=== PATIENT | female | born 1970 | race Caucasian/White ===

== ENCOUNTER 2018-03-29 12:30 | Inpatient (IN) | END 2018-04-05 15:50 | disposition home or self-care (01) | DRG 694 ==

== ENCOUNTER 2018-04-30 19:13 | Inpatient (IN) | END 2018-05-04 14:08 | disposition home or self-care (01) | DRG 872 ==

== ENCOUNTER 2018-09-03 10:44 | Inpatient (IN) | END 2018-09-05 14:54 | disposition home or self-care (01) | DRG 743 ==

== ENCOUNTER 2018-10-14 23:17 | Inpatient (IN) | payer OTHER ==
[~2018-10-14] VITALS: Ht 167.6 cm; Wt 84.1 kg
[~2018-10-14 23:17] MED LIST: HYDR-843 PO; METF500T24 PO; PANT40TA4 PO
[2018-10-15] MEDS ORDERED: ONDANSETRON 4 MG INJ IV STA (00:12)
[2018-10-15] MEDS ORDERED: morphine 4 MG/ML VIAL IV STA (00:12)
[2018-10-15] MEDS ORDERED: SOD CHLORIDE 0.9% 1,000 ML IV ONE (00:30)
[2018-10-15] MEDS ORDERED: HYDROCODONE/APAP (5/325) TAB PO ONE ×2 (00:30→01:00)
[2018-10-15] MEDS ORDERED: SODIUM CHLORIDE 0.9% 1L BAG IV* STA (01:06)
[2018-10-15] MEDS ORDERED: CEFTRIAXONE 1 GM/50 ML (PMX) 50 ML IVPB STA (01:06)
--- NOTE | 2018-10-15 01:34 | ERD ---
ER Documentation Chief Complaint Chief Complaint DYSURIA, LOWER BACK PAIN X'S 2 DAYS HPI 48-year-old female presents for evaluation of left flank pain, fever, nausea. Patient has a history of a staghorn calculus, and has had recurrent urinary tract infections, she also has been noted to have a pancreatic cystic mass as well, she was admitted in August 2018, for similar episode. She denies any vomiting today, she denies hematuria. She denies recent sick contacts or any other hospitalizations. ROS All systems reviewed and are negative except as per history of present illness. Medications Home Meds Active Scripts Pantoprazole* (Pantoprazole*) 40 Mg Tablet.dr, 40 MG PO DAILY@06 for 30 Days Prov:ASHANTI CORONEL MD 04/04/18 Reported Medications Hydroxyzine Hcl* (Hydroxyzine Hcl*) 25 Mg Tablet, 25 MG PO QHS PRN for ITCHING, #30 TAB 03/29/18 Metformin Hcl* (Metformin Hcl*) 500 Mg Tablet, 500 MG PO WITH BREAKFAST DINNE, #30 TAB 03/29/18 Allergies Allergies: Coded Allergies: No Known Allergies (Verified Allergy, Unknown, 04/30/18) PMhx/Soc History of Surgery: Yes (x2 c section ) Anesthesia Reaction: No Hx Neurological Disorder: No Hx Respiratory Disorders: No Hx Cardiac Disorders: No Hx Psychiatric Problems: No Hx Miscellaneous Medical Probl: Yes (UTI, Kidney infection) Hx Alcohol Use: No Hx Substance Use: No Hx Tobacco Use: No Smoking Status: Never smoker Physical Exam Vitals Vital Signs Date Temp Pulse Resp B/P (MAP) Pulse Ox O2 O2 Flow FiO2 Time Delivery Rate 10/15/18 97.6 64 15 96/72 (80) 98 Room Air 05:03 10/15/18 98.8 65 22 105/53 97 Room Air 02:00 (70) 10/14/18 100.8 111 20 116/74 98 23:20 (88) Physical Exam Const: No acute distress Head: Atraumatic Eyes: Normal Conjunctiva ENT: Normal External Ears, Nose and Mouth. Neck: Full range of motion. No meningismus. Resp: Clear to auscultation bilaterally Cardio: Tachycardia regular rhythm, no murmurs Abd: Soft, non tender, non distended. Normal bowel sounds Skin: No petechiae or rashes Back: No midline or flank tenderness Ext: No cyanosis, or edema Neur: Awake and alert Psych: Normal Mood and Affect Result Diagram: 10/15/18 0025 10/15/18 0025 Results 24 hrs Laboratory Tests Test 10/15/18 00:10 10/15/18 00:25 10/15/18 01:30 10/15/18 01:41 Urine Color SHANICE Urine Clarity TURBID Urine pH 5.0 Urine Specific 1.023 [place] Urine Ketones TRACE mg/dL Urine Nitrite POSITIVE mg/dL Urine Bilirubin NEGATIVE mg/dL Urine 1+ mg/dL Urobilinogen Urine Leukocyte 3+ Dulce/ul Esterase Urine Microscopic > 182 /HPF RBC Urine Microscopic > 182 /HPF WBC Urine Squamous FEW /HPF Epithelial Cells Urine Bacteria MANY /HPF Urine Mucus FEW /HPF Urine Hemoglobin 3+ mg/dL Urine Glucose 1+ mg/dL Urine Total 2+ mg/dl Protein White Blood Count 9.3 10^3/ul Red Blood Count 4.36 10^6/ul Hemoglobin 11.0 g/dl Hematocrit 34.6 % Mean Corpuscular 79.4 fl Volume Mean Corpuscular 25.2 pg Hemoglobin Mean Corpuscular 31.8 g/dl Hemoglobin Concen t Red Cell 16.6 % Distribution Width Platelet Count 155 10^3/UL Mean Platelet 12.0 fl Volume Immature 0.400 % Granulocytes % Neutrophils % 83.5 % Lymphocytes % 6.2 % Monocytes % 9.7 % Eosinophils % 0.0 % Basophils % 0.2 % Nucleated Red 0.0 /100WBC Blood Cells % Immature 0.040 10^3/ul Granulocytes # Neutrophils # 7.8 10^3/ul Lymphocytes # 0.6 10^3/ul Monocytes # 0.9 10^3/ul Eosinophils # 0.0 10^3/ul Basophils # 0.0 10^3/ul Nucleated Red 0.0 10^3/ul Blood Cells # Prothrombin Time 14.3 Sec Prothrombin Time 1.1 Ratio INR International 1.10 Normalized Ratio Activated 30.4 Sec Partial Thrombopl ast Time Sodium Level 139 mmol/L Potassium Level 4.3 mmol/L Chloride Level 103 mmol/L Carbon Dioxide 26 mmol/L Level Anion Gap 10 Blood Urea 18 mg/dl Nitrogen Creatinine 0.96 mg/dl Est Glomerular > 60 mL/min Filtrat Rate mL/min Glucose Level 307 mg/dl Calcium Level 10.5 mg/dl Total Bilirubin 0.4 mg/dl Direct Bilirubin 0.00 mg/dl Indirect 0.4 mg/dl Bilirubin Aspartate Amino 36 IU/L Transf (AST/SGOT) Alanine 39 IU/L Aminotransferase (ALT/SGPT) Alkaline 113 IU/L Phosphatase Total Protein 7.0 g/dl Albumin 4.1 g/dl Globulin 2.90 g/dl Albumin/Globulin 1.41 Ratio Lipase 66 U/L Troponin I < 0.012 ng/ml POC Venous 1.3 mmol/L Lactate Test 10/15/18 03:46 POC Venous 0.8 mmol/L Lactate Current Medications Medications Dose Sig/Earnest Start Time Status Last (Trade) Ordered Route PRN Stop Time Admin Dose Reason Admin 1 tab ONCE ONCE 10/15/18 DC Acetaminophen PO 00:30 10/15/18 / 00:30 Hydrocodone Bitart ([place] (5/325)) Sodium 1,000 ml @ Q1H ONCE 10/15/18 DC 10/15/18 Chloride 1,000 mls/hr IV 00:30 10/15/18 00:53 01:29 Morphine 4 mg ONCE STAT 10/15/18 DC Sulfate IV 00:12 10/15/18 (morphine) 00:38 Ondansetron 4 mg ONCE STAT 10/15/18 DC 10/15/18 HCl (Zofran IV 00:12 10/15/18 00:52 Inj) 00:13 1 tab ONCE ONCE 10/15/18 DC 10/15/18 Acetaminophen PO 01:00 10/15/18 00:52 / 01:01 Hydrocodone Bitart ([place] (5/325)) Sodium 1,410 ml BOLUS OVER 2 10/15/18 DC 10/15/18 Chloride HOURS STAT 01:06 10/15/18 01:45 (NS) IV* 01:09 Ceftriaxone 50 ml @ ONCE STAT 10/15/18 DC 10/15/18 Sodium 100 mls/hr IVPB 01:06 10/15/18 01:44 01:35 Procedures/MDM Is a 48-year-old female presents for evaluation of left flank pain, she presents with fever and tachycardia. Patient was initially seen in ED 2, I noted that her UA had returned positive and reviewed her prior vital signs, which showed fever and tachycardia, that she met sepsis criteria. She was given 1 L of IV fluids, additional bolus was ordered to complete a 30 cc/kg bolus. She will be treated with IV antibiotics with ceftriaxone, and will be admitted to medicine. EKG: Rate/Rhythm: Normal Sinus Rhythm QRS, ST, T-waves: No changes consistent w/ acute ischemia Impression: No evidence of ischemia or arrhythmia Chest X-ray 1V Interpreted by me: Soft Tissue: No acute abnormalities Bones: No acute abnormalities Mediastinum/Cardiac Silhouette/Lungs: No acute abnormalities Sepsis Documentation: Patient's infectious symptoms have not stabilized and the patient is at risk of rapid decompensation. The patient will be admitted for careful hydration, antibiotic therapy, and infectious source control. SEVERE SEPSIS CRITERIA: Infectious source: UTI/pyelonephritis No evidence of endorgan damage SEPSIS MANAGEMENT Time of recognition of sepsis: Upon review of urinalysis. Time of recognition of severe sepsis: [No severe sepsis at this time]. Time of recognition of septic shock: [No septic shock at this time]. 3 HOUR BUNDLE Blood cultures x 2 before broad-spectrum antibiotics: [Yes] 30 ml/kg NS bolus [Completed] Initial lactate [] Repeat lactate [] SEPTIC SHOCK ASSESSMENT: [No] lactic acid > 4.0 [No] Persistent hypotension (SBP < 90 or 40 mmHg drop, MAP < 65) despite 30 mL/kg IV fluid bolus VOLUME REASSESSMENT FOR SEPTIC SHOCK: Reevaluation Time: [] Temp [], BP [], HR [], RR[], Pox [] Heart [Regular rate & rhythm] Lungs [No crackles] Skin [Warm & dry] Cap Refill [Less than 2 seconds] Peripheral pulses [Radially present] PERSISTENT HYPOTENSION TREATMENT: Comfort care [No] Central line [Not Required] Vasopressor started [Not required] I considered further perfusion assessment with CVP measurement, SCVO2, bedside ultrasound volume assessment, passive leg raise, trial of further fluid bolus. And proceeded with [30 ml/kg fluid bolus of NSS, broad spectrum antibiotics, and admission.] CRITICAL CARE Critical care time [35] minutes Emergent fluid management while maintaining close respiratory support. Provision of immediate and broad-spectrum antibiotic therapy. Simultaneous assessment for possible sources in order to direct targeted therapy. Consideration for invasive and chemical support to prevent cardiopulmonary col lapse. Critical care time is independent of procedures performed. Departure Diagnosis: Primary Impression: Flank pain Additional Impressions: Pyelonephritis Sepsis Sepsis type: sepsis due to unspecified organism Qualified Codes: A41.9 - Sepsis, unspecified organism Condition: Stable SEBASTIAN DUFFY MD Oct 15, 2018 01:34
[2018-10-15 06:10] VITALS: Ht 167.6 cm; Wt 84.1 kg
[2018-10-15 06:18] VITALS: BP 103/64; PULSE 67; RESP 16
--- NOTE | 2018-10-15 06:59 | NUR ---
END OF SHIFT SUMMARY: PATIENT ARRIVED TO UNIT AT 0555 IN STABLE CONDITION. V/S STABLE, AFEBRILE. ADMISSION, PICTURES (SKIN INTACT) AND ORIENTATION COMPLETE. WILL ENTER DR. CORONEL'S ORDERS AND ENDORSE TO AM RN. INSTRUCTED PATIENT TO CALL FOR ASSISTANCE. CALL LIGHT AND PHONE IN PLACE. WILL ENDORSE PLAN OF CARE TO AM RN.
[2018-10-15] MEDS ORDERED: ONDANSETRON 4 MG INJ IV PRN (07:00)
[2018-10-15] MEDS: PIPER-TAZO 3.375 GM IV (PMX) 100 ML IVPB SCH ×3 (07:00→21:29)
[2018-10-15 07:04] VITALS: BP 117/63; PULSE 61; RESP 15
[2018-10-15] MEDS ORDERED: DEXTROSE 50% 50 ML SYRINGE IV PRN ×2 (08:00)
[2018-10-15] MEDS ORDERED: GLUCAGON 1 MG INJ IM PRN (08:00)
[2018-10-15] MEDS ORDERED: GLUCOSE GEL 15 GRAM TUBE BUCCAL PRN (08:00)
[2018-10-15] MEDS ORDERED: GLUCOSE GEL 15 GRAM TUBE PO PRN ×2 (08:00)
[2018-10-15] MEDS: SOD CHLORIDE 0.45% 1,000 ML IV SCH ×2 (08:29→21:32)
[2018-10-15] MEDS: PANTOPRAZOLE 40 MG INJ IV SCH (08:30)
[2018-10-15] MEDS: INSULIN ASPART [NOVOLOG] 3 ML PEN SC SCH ×4 (09:47→21:00)
--- NOTE | 2018-10-15 10:38 | CONS ---
Date/Time of Note Date/Time of Note DATE: 10/15/18 TIME: 10:23 Assessment/Plan Assessment/Plan Assessment/Plan 48-year-old female with known history of horseshoe kidney and large left renal staghorn calculus has recurrent urinary tract infections. She was admitted with symptoms of urinary tract infection again. Considering the fact that she has a horseshoe kidney and being 5.8 cm staghorn calculus I recommend to send her to a urologist in a tertiary hospital where a urologist specializes in complicated stones. For now treat her urinary tract infection. Result Diagram: 10/15/18 0025 10/15/18 0025 Results 24hrs Laboratory Tests Test 10/15/18 00:10 10/15/18 00:25 10/15/18 01:30 10/15/18 01:41 Urine Color SHANICE Urine Clarity TURBID A Urine pH 5.0 Urine Specific [place] 1.023 Urine Ketones TRACE A Urine Nitrite POSITIVE A Urine Bilirubin NEGATIVE Urine Urobilinogen 1+ H Urine Leukocyte Esterase 3+ H Urine Microscopic RBC > 182 H Urine Microscopic WBC > 182 H Urine Squamous FEW Epithelial Cells Urine Bacteria MANY A Urine Mucus FEW A Urine Hemoglobin 3+ H Urine Glucose 1+ H Urine Total Protein 2+ H White Blood Count 9.3 # Red Blood Count 4.36 Hemoglobin 11.0 L Hematocrit 34.6 L Mean Corpuscular Volume 79.4 L Mean Corpuscular 25.2 L Hemoglobin Mean Corpuscular 31.8 L Hemoglobin Concent Red Cell Distribution 16.6 H Width Platelet Count 155 # Mean Platelet Volume 12.0 H Immature Granulocytes % 0.400 Neutrophils % 83.5 H Lymphocytes % 6.2 L Monocytes % 9.7 Eosinophils % 0.0 Basophils % 0.2 Nucleated Red Blood 0.0 Cells % Immature Granulocytes # 0.040 H Neutrophils # 7.8 H Lymphocytes # 0.6 L Monocytes # 0.9 Eosinophils # 0.0 Basophils # 0.0 Nucleated Red Blood 0.0 Cells # Prothrombin Time 14.3 Prothrombin Time Ratio 1.1 INR International 1.10 Normalized Ratio Activated 30.4 Partial Thromboplast Time Sodium Level 139 Potassium Level 4.3 Chloride Level 103 Carbon Dioxide Level 26 Anion Gap 10 Blood Urea Nitrogen 18 Creatinine 0.96 Est Glomerular Filtrat > 60 Rate mL/min Glucose Level 307 H Calcium Level 10.5 H Total Bilirubin 0.4 Direct Bilirubin 0.00 Indirect Bilirubin 0.4 Aspartate Amino 36 Transf (AST/SGOT) Alanine 39 Aminotransferase (ALT/SG PT) Alkaline Phosphatase 113 Total Protein 7.0 Albumin 4.1 Globulin 2.90 Albumin/Globulin Ratio 1.41 Lipase 66 Troponin I < 0.012 POC Venous Lactate 1.3 Test 10/15/18 03:46 10/15/18 05:32 10/15/18 08:32 POC Venous Lactate 0.8 Lactic Acid Level 0.7 Bedside Glucose 167 Consultation Date/Type/Reason Admit Date/Time Oct 15, 2018 at 04:40 Date of Consultation: Oct 15, 2018 Type of Consult Urology Reason for Consultation Left renal staghorn calculus and recurrent urinary tract infection Requesting Provider: ASHANTI CORONEL of Present Illness 48-year-old female presented to the emergency room with complaint of nausea, bilateral flank pain more on the left than the right, dysuria and bad smell of the urine. She also had a fever of 100.2 in the emergency room. She is known to have a history of recurrent urinary tract infections and very large left renal staghorn calculus and a horseshoe kidney. Constitutional: febrile Eyes: no complaints ENT: no complaints Respiratory: no complaints Cardiovascular: No chest pain Gastrointestinal: nausea Genitourinary: dysuria, flank pain (Both sides), other (Bad smell of the urine, urinary frequency and urgency) Musculoskeletal: no complaints Skin: no complaints Neurologic: no complaints Endocrine: no complaints Lymphatic: no complaints Psychological: no complaints Past Medical History Medical History: diabetes, urinary tract infection, other (Pancreatic mass stable on CT scan) Medications Current Medications Sodium Chloride 1,000 ml @ 75 mls/hr [id number] IV Last administered on 10/15/18at 08:29; Admin Dose 75 MLS/HR; Start 10/15/18 at 07:00 Pantoprazole (Protonix Iv) 40 mg DAILY@06 IV Last administered on 10/15/18at 08:30; Admin Dose 40 MG; Start 10/15/18 at 07:30 Acetaminophen (Tylenol Tab) 650 mg Q6H PRN PO MILD PAIN(1-3)OR ELEVATED TEMP; Start 10/15/18 at 07:00 Ondansetron HCl (Zofran Inj) 4 mg Q6H PRN IV NAUSEA AND/OR VOMITING; Start 10/15/18 at 07:00 Hydromorphone HCl (Dilaudid) 0.5 mg Q4H PRN IV SEVERE PAIN LEVEL 7-10; Start 10/15/18 at 07:00 Piperacillin Sod/ Tazobactam Sod 100 ml @ 200 mls/hr Q8 IVPB ; Start 10/15/18 at 07:00 Diagnostic Test (Pha) (Accu-Chek) 1 ea 02 XX ; Start 10/16/18 at 02:00 Insulin Aspart (Novolog Insulin Pen) NOVOLOG *MILD* ALGORITHM WITH MEALS BEDTIME SC Last administered on 10/15/18at 09:47; Admin Dose 1 UNIT; Start 10/15/18 at 07:50 Miscellaneous Information 1 ea NOTE XX ; Start 10/15/18 at 08:00 Glucose (Glutose) 15 gm Q15M PRN PO DECREASED GLUCOSE; Start 10/15/18 at 08:00 Glucose (Glutose) 22.5 gm Q15M PRN PO DECREASED GLUCOSE; Start 10/15/18 at 08:00 Dextrose (D50w Syringe) 25 ml Q15M PRN IV DECREASED GLUCOSE; Start 10/15/18 at 08:00 Dextrose (D50w Syringe) 50 ml Q15M PRN IV DECREASED GLUCOSE; Start 10/15/18 at 08:00 Glucagon (Glucagen) 1 mg Q15M PRN IM DECREASED GLUCOSE; Start 10/15/18 at 08:00 Glucose (Glutose) 15 gm Q15M PRN BUCCAL DECREASED GLUCOSE; Start 10/15/18 at 08:00 Allergies: Coded Allergies: No Known Allergies (Verified Allergy, Unknown, 04/30/18) Past Surgical History Past Surgical Hx: other (Laparoscopic total abdominal hysterectomy 2 months ago, 2 C-sections) Social History Alcohol Use: rarely Smoking Status: Never smoker Other Social History 7 para 5 2 and 3 normal deliveries. Exam/Review of Systems Vital Signs Vitals Vital Signs Date Temp Pulse Resp B/P (MAP) Pulse Ox O2 O2 Flow FiO2 Time Delivery Rate 10/15/18 98.6 61 15 117/63 100 Room Air 07:04 (81) Intake and Output 10/14/18 10/14/18 10/15/18 1515:00 23:00 07:00 IntakeIntake Total 1460 ml BalanceBalance 1460 ml Exam Constitutional: alert Psych: no complaints Head: normocephalic Eyes: nl conjunctiva ENMT: nl external ears & nose Neck: supple, non-tender Respiratory: normal air movement; No wheezing Cardiovascular: No jugular venous distention (JVD) Gastrointestinal: soft Genitourinary - Female: CVA tenderness (Bilateral), other (Status post laparoscopic total hysterectomy. Benign pathology, no malignancy) Musculoskeletal: nl extremities to inspection Extremities: No calf tenderness Neurological: nl mental status Medications Medications Current Medications Sodium Chloride 1,000 ml @ 75 mls/hr [id number] IV Last administered on 10/15/18at 08:29; Admin Dose 75 MLS/HR; Start 10/15/18 at 07:00 Pantoprazole (Protonix Iv) 40 mg DAILY@06 IV Last administered on 10/15/18at 08:30; Admin Dose 40 MG; Start 10/15/18 at 07:30 Acetaminophen (Tylenol Tab) 650 mg Q6H PRN PO MILD PAIN(1-3)OR ELEVATED TEMP; Start 10/15/18 at 07:00 Ondansetron HCl (Zofran Inj) 4 mg Q6H PRN IV NAUSEA AND/OR VOMITING; Start 10/15/18 at 07:00 Hydromorphone HCl (Dilaudid) 0.5 mg Q4H PRN IV SEVERE PAIN LEVEL 7-10; Start 10/15/18 at 07:00 Piperacillin Sod/ Tazobactam Sod 100 ml @ 200 mls/hr Q8 IVPB ; Start 10/15/18 at 07:00 Diagnostic Test (Pha) (Accu-Chek) 1 ea 02 XX ; Start 10/16/18 at 02:00 Insulin Aspart (Novolog Insulin Pen) NOVOLOG *MILD* ALGORITHM WITH MEALS BEDTIME SC Last administered on 10/15/18at 09:47; Admin Dose 1 UNIT; Start 10/15/18 at 07:50 Miscellaneous Information 1 ea NOTE XX ; Start 10/15/18 at 08:00 Glucose (Glutose) 15 gm Q15M PRN PO DECREASED GLUCOSE; Start 10/15/18 at 08:00 Glucose (Glutose) 22.5 gm Q15M PRN PO DECREASED GLUCOSE; Start 10/15/18 at 08:00 Dextrose (D50w Syringe) 25 ml Q15M PRN IV DECREASED GLUCOSE; Start 10/15/18 at 08:00 Dextrose (D50w Syringe) 50 ml Q15M PRN IV DECREASED GLUCOSE; Start 10/15/18 at 08:00 Glucagon (Glucagen) 1 mg Q15M PRN IM DECREASED GLUCOSE; Start 10/15/18 at 08:00 Glucose (Glutose) 15 gm Q15M PRN BUCCAL DECREASED GLUCOSE; Start 10/15/18 at 0 8:[address] scan of the abdomen and pelvis: 1. Persistent left renal staghorn calculus with findings compatible with chronic infection stable since the prior study. 2. Interval pelvic surgery with apparent hysterectomy and bilateral oophorec carina. 3. No evidence of abdominal or pelvic abscess. 4. Horseshoe kidneys. 5. Stable chronic cystic pancreatic mass. HEMANT TAVERA MD Oct 15, 2018 10:34
--- NOTE | 2018-10-15 14:00 | NUR ---
PATIENT COMFORTABLE. ALERT ORIENTED. VITALS STABLE. ON CLEAR LIQUID STATUS. AND CONTINUED WITH ACCUCHECK. SEEN BY ARIADNE GILMORE NO ORDERS RECEIVED. SEEN BY SAGE GILMORE AND NO ORDERS RECEIVED. DIET TOLERATED. PATIENT ASSISTED TO TOILET FOR VOIDING FEW TIMES. IV SITE INTACT AND PATENT WITH IVFLUID ON FLOW. ALL SAFETY PRECAUTIONS CONTINUED SUCH BED IN THE LOWEST POSITION, ALARMS ON, BRAKES ON, CALL LIGHT WITHIN REACH. WILL CONTINUE TO MONITOR.
[2018-10-15 14:24] VITALS: BP 142/70; PULSE 94; RESP 15
[2018-10-15] MEDS: HYDROmorphONE 0.5 MG/0.5 ML SYG IV PRN (14:39)
[2018-10-15] MEDS: ACETAMINOPHEN 325 MG TAB PO PRN ×2 (14:53→22:35)
--- NOTE | 2018-10-15 15:49 | QN ---
Documentation Comment seen and examined CINDI CAZARES MD Oct 15, 2018 15:49
--- NOTE | 2018-10-15 16:14 | HP ---
DATE OF ADMISSION: 10/15/2018 REASON FOR ADMISSION: Back pain, fevers and chills. HISTORY OF PRESENT ILLNESS: This is a 48-year-old female with a past medical history of staghorn martina culus, diabetes, presented to the Emergency Department after complaining of left flank pain, fever an d nausea for the last 2 to 3 days. The patient has also been saying that she has been noticing that her urine being turned dark. Patient has also had recent recurrent urinary tract infections. The shari odonnell was being seen by Dr. Cedillo as an outpatient; however, according to the patient the patient has not had any surgery or any intervention done. On arrival to the ED, vital signs showed a temperatur e of 100.8. Labs showed white count of 9.9, hemoglobin of 11 9.3, hemoglobin 11.0. UA showed 182 RB Cs, 182 WBCs. Urine cultures were pending and the patient was started on NS and Zosyn for further tr eatment. The patient had also been seen by Dr. Henriquez and the patient had horseshoe shaped kidney a nd being a 5.8 cm staghorn calculus. He [facility] PAST MEDICAL HISTORY: 1. Diabetes. 2. History of herpes simplex infection. 3. Hypercholesterolemia. 4. Horseshoe shaped kidney with left staghorn calculus, pyelonephritis or pancreatic cystic lesion a nd pelvic lesion. 5. Fatty liver. ALLERGIES: None. MEDICATIONS: Taking at home: 1. Acyclovir. 2. Metformin. 3. Naproxen. PAST SURGICAL HISTORY: Patient also had a recent ovarian surgery, x2. SOCIAL HISTORY: Denies any history of smoking, alcohol or any drug use. FAMILY HISTORY: Noncontributory. REVIEW OF SYSTEMS: The patient complained of left flank pain. The patient also complained of some n ausea. Denied any diarrhea. Denied any headache, any blurry vision, having burning sensation while urinating. Denied any chest pain, any shortness of breath. Denied any focal neurological deficit. PHYSICAL EXAMINATION: VITAL SIGNS: Currently temperature 100.8. GENERAL: The patient is awake, alert, oriented, appears to be in mild distress secondary to pain. HEENT: Pupils equal, round, reactive to light. NECK: Supple, no JVD. HEART: Regular rhythm. LUNGS: Clear to auscultate bilaterally. ABDOMEN: Soft, nontender, nondistended, positive normoactive bowel sounds. The patient has well-hea led surgical scars. The patient has CVA tenderness on the right and on the left, more on the left. EXTREMITIES: No clubbing, cyanosis, or edema. DIAGNOSTIC DATA: Creatinine is 0.96. White count is 9.3, hemoglobin 11.0, platelet count is 155. UA shows 1 to 2 WBCs, 1 to 2 RBCs and hemoglobin are 2+ protein, positive for nitrite. IMAGING: CT of the abdomen and pelvis that showed persistent left staghorn calculus with chronic inf ection. Interval pelvic surgery apparent hysterectomy and bilateral oophorectomy, horseshoe shaped k idney, stable, chronic pancreatic cystic mass. ASSESSMENT AND PLAN: This is a 48-year-old female presenting with: 1. 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 Patient had a history of E. coli i n the past. 2. History of hysterectomy and bilateral oophorectomy. 3. Fever secondary to #1. 4. Horseshoe shaped kidneys. 5. Stable left pancreatic cystic mass. 6. Diabetes. 7. Hyperlipidemia. 8. History of herpes infection. PLAN: At this period of time, patient has been admitted to med/surg unit. We will continue the laura ent on IV fluids. The patient is already on Zosyn. Urine cultures have been sent. Urology, Dr. Bárbara willis, has been consulted; however, will call Dr. Cedillo, who had seen the patient before. Rest of the treatment will depend on the patient's hospitalization course. Dictated By: CINDI GROSSMAN/ROMERO Conf#: [id number] DID#: [id number] CC: ASHANTI CORONEL MD;*EndCC*
--- NOTE | 2018-10-15 18:00 | NUR ---
END OF SHIFT NOTE: PATIENT COMFORTABLE REST OF THE DAY. NO COMPLAINS OF ANY PAIN. IV FLUID CONTINUED. SCD ON ALL SAFETY PRECAUTIONS MAINTAINED. WILL CONTINUE TO MONITOR.
[2018-10-15 19:17] VITALS: BP 111/66; PULSE 71; RESP 16
[2018-10-16 01:30] VITALS: BP 122/65; PULSE 67; RESP 16
[2018-10-16] MEDS: ACCU-CHEK XX SCH (02:00)
[2018-10-16] MEDS: PANTOPRAZOLE 40 MG INJ IV SCH (05:39)
[2018-10-16] MEDS: HYDROmorphONE 0.5 MG/0.5 ML SYG IV PRN ×3 (05:41→20:10)
[2018-10-16] MEDS: PIPER-TAZO 3.375 GM IV (PMX) 100 ML IVPB SCH ×3 (05:43→23:05)
[2018-10-16 07:37] VITALS: BP 111/65; PULSE 63; RESP 18
[2018-10-16] MEDS: INSULIN ASPART [NOVOLOG] 3 ML PEN SC SCH ×4 (08:31→21:00)
--- NOTE | 2018-10-16 08:46 | CONS ---
DATE OF ADMISSION: 10/15/2018 DATE OF CONSULTATION: 10/16/2018 Thank you very much for requesting a urologic followup on the patient, a 48-year-old female with a kn own horseshoe kidney and nonobstructing staghorn calculi in her left portion of the horseshoe kidney, who presented 2 days ago with left flank pain, fever and nausea. The patient had a T-max in the [facility] room of 100.8 with a heart rate of 111. She was given IV antibiotics and fluids with immediat e resolution. At the current time, she is no longer having flank pain, nausea or vomiting. A follow up CT scan on 10/15/2018 without IV contrast of the abdomen and pelvis demonstrated a stable nonobstr ucting horseshoe kidney as well as a grossly stable cystic lesion in the pancreas not well visualized without IV contrast. The patient is status post hysterectomy 2 months ago for adnexal mass. When t he patient was last seen in July she was to undergo an evaluation of her adnexal mass as well as h er significant pancreatic mass. Her pancreatic mass has not been evaluated to date. Upon presentati on to the hospital, she was placed on IV antibiotics and is currently on piperacillin. Her blood cul tures x2 are negative. There is no urine culture. PAST MEDICAL HISTORY: Diabetes, as well as above. PAST SURGICAL HISTORY: As above. ALLERGIES: NO KNOWN DRUG ALLERGIES. CURRENT MEDICATIONS: 1. Insulin. 2. Piperacillin. PHYSICAL EXAMINATION: VITAL SIGNS: Blood pressure 111/65, heart rate 63, temperature 98.6. ABDOMEN: Soft, nondistended, nontender. No palpable masses. FLANK: No CVA tenderness, no masses. LABORATORY DATA: White blood count 5.9, hemoglobin 9.1, creatinine 0.65. PT 14.3, PTT 30. Chest x-ray negative. IMPRESSION: Impression is nonobstructing chronic large left-sided horseshoe kidney with prominent st aghorn calculi previously measuring 5.8 cm without any hydronephrosis, status post hysterectomy, diab etes and significant pancreatic mass. PLAN: Urine culture suggests evaluation of pancreatic mass with clearance of the above would suggest percutaneous nephrolithotripsy, must consider flank pain as well as fewer of other etiologies as no urine culture was obtained and the stone is nonobstructing. We will review images with [facility] to see if she is a candidate for percutaneous nephrolithotripsy here at [facility]. All questions have been answered. The patient does understand multiple treatments may be required to remove this significant stone burden as well as her increased risk. All questions ans wered. Dictated By: ROSETTE FRIAS MD EGR/NTS Conf#: [id number] DID#: [id number] CC: ROSETTE FRIAS MD; ASHANTI CORONEL MD;*EndCC*
[2018-10-16] MEDS: SOD CHLORIDE 0.45% 1,000 ML IV SCH ×2 (10:39→23:00)
--- NOTE | 2018-10-16 11:00 | NUR ---
RECEIVED PATIENT REPORT FROM APPLE Ambrose AT THIS TIME .PATIENT ALERT , ORIENTED, VITALS STABLE. IV FLUID ON FLOW. ALL SAFETY PRECAUTIONS MAINTAINED SUCH BED IN THE LOWEST POSITION, ALARMS ON, BRAKES ON, CALL LIGHT WITH IN REACH. ENCOURAGED TO USE CALL LIGHT.
--- NOTE | 2018-10-16 11:11 | NUR ---
ENDORSEMENT: REPORT GIVEN TO JING Gallardo RN FOR CONTINUITY OF CARE. PATIENT SLEEPING IN BED, APPEARS IN NO DISTRESS. PATIENT IV ON LEFT AC, RUNNING IV FLUIDS. DR. FRIAS SAW PATIENT IN AM, PER MD NOTE, WAITING FOR URINE SAMPLE AND IMAGING TO DECIDE PLAN OF CARE. PATIENT DENIED NEED FOR PAIN MEDICATIONS DURING SHIFT. HOURLY ROUNDING, FALL PRECUATIONS OBSERVED, ENDORSED TO JING Ramirez
[2018-10-16 14:00] VITALS: BP 120/62; RESP 18
--- NOTE | 2018-10-16 16:20 | NUR ---
RECEIVED PATIENT REPORT FROM INSPECTOR PROCESSAPPLE ALDRIDGE . RECEIVED PATIENT TO ROOM 432 AT THIS TIME.ALERT, ORIENTED. VITALS STABLE ON ADMISSION, RECEIVED S/P RIGHT TOTAL KNEE REPLACEMENT BY DR. MARCUM . PATIENT ADMITTED WITH [facility] . SCD'S ON. IV ON LEFT ARM IS INTACT AND IV FLUID ON FLOW. ORIENTED TO THE STAFF AND INTRODUCED CALL LIGHT SYSTEM AND EXPLAINED. RIGHT KNEE SURGICAL SITE INTACT DRESSING WITH KERLIX BANDAGING ON. NO BLEEDING OR DRAINAGE NOTED. ALL SAFETY PRECAUTIONS STARTED TO AVOID FALLS AND INJURIES SUCH BED IN THE LOWEST POSITION, ALARMS ON, BRAKES ON, CALL LIGHT WITHIN REACH. ENCOURAGED TO USE THE CALL LIGHT . WILL CONTINUE TO MONITOR. Addendum: 10/16/18 at 1832 by JING WU RN WRONG PATIENT NOTES
--- NOTE | 2018-10-16 16:54 | CONS ---
Date/Time of Note Date/Time of Note DATE: 10/16/18 TIME: 16:54 Assessment/Plan Assessment/Plan Hospital Course Impression: 1. stable pancreatic cysts since Jul 2018 2. kidney stone 3. possible pyelonephritis Recommendations: 1. repeat CT in 6 months time, if larger then will need to see GI for EUS with FNA of the pancreatic cysts. This can be done at [facility], [facility] or [facility] 2. treat possible pyelonephritis 3. urology for kidney stone Result Diagram: 10/16/18 0422 10/16/18 0422 Results 24hrs Laboratory Tests Test 10/15/18 18:18 10/15/18 21:28 10/16/18 04:22 10/16/18 08:03 Bedside Glucose 231 H 146 162 White Blood Count 5.9 # Red Blood Count 3.62 L Hemoglobin 9.1 L Hematocrit 28.8 L Mean Corpuscular Volume 79.6 L Mean Corpuscular 25.1 L Hemoglobin Mean Corpuscular 31.6 L Hemoglobin Concent Red Cell Distribution 16.8 H Width Platelet Count 129 L Mean Platelet Volume 12.5 H Immature Granulocytes % 0.200 Neutrophils % 63.9 Lymphocytes % 19.6 Monocytes % 14.4 H Eosinophils % 1.7 Basophils % 0.2 Nucleated Red Blood 0.0 Cells % Immature Granulocytes # 0.010 Neutrophils # 3.8 Lymphocytes # 1.2 Monocytes # 0.9 Eosinophils # 0.1 Basophils # 0.0 Nucleated Red Blood 0.0 Cells # Sodium Level 140 Potassium Level 4.2 Chloride Level 111 H Carbon Dioxide Level 24 Anion Gap 5 Blood Urea Nitrogen 8 # Creatinine 0.65 Est Glomerular Filtrat > 60 Rate mL/min Glucose Level 160 # Calcium Level 9.9 Phosphorus Level 3.1 Magnesium Level 2.1 Test 10/16/18 12:32 Bedside Glucose 162 Consultation Date/Type/Reason Admit Date/Time Oct 15, 2018 at 04:40 Date of Consultation: Oct 16, 2018 Type of Consult Gastroenterology Reason for Consultation pancreatic cyst Hx of Present Illness 48-year-old female with a past medical history of staghorn calculus, diabetes, who is admitted for left flank pain, fever and nausea. GI consulted for panccreatic cysts on imaging. The patient has also been saying that she has been noticing that her urine being turned dark. Patient has also had recent recurrent urinary tract infections. The patient was being seen by Dr. Cedillo as an outpatient; however, according to the patient the patient has not had any surgery or any intervention done. The patient had also been seen by Dr. Henriquez and the patient had horseshoe shaped kidney and being a 5.8 cm staghorn calculus. All point review of system were administered, pertinent positives and negative in HPI otherwise negative. Past Medical History Medical History: diabetes, urinary tract infection, other Medications Current Medications Sodium Chloride 1,000 ml @ 75 mls/hr [id number] IV Last administered on 10/16/18at 10:39; Admin Dose 75 MLS/HR; Start 10/15/18 at 07:00 Acetaminophen (Tylenol Tab) 650 mg Q6H PRN PO MILD PAIN(1-3)OR ELEVATED TEMP Last administered on 10/15/18at 22:35; Admin Dose 650 MG; Start 10/15/18 at 07:00 Ondansetron HCl (Zofran Inj) 4 mg Q6H PRN IV NAUSEA AND/OR VOMITING; Start 10/15/18 at 07:00 Hydromorphone HCl (Dilaudid) 0.5 mg Q4H PRN IV SEVERE PAIN LEVEL 7-10 Last administered on 10/16/18at 13:48; Admin Dose 0.5 MG; Start 10/15/18 at 07:00 Piperacillin Sod/ Tazobactam Sod 100 ml @ 200 mls/hr Q8 IVPB Last administered on 10/16/18at 13:43; Admin Dose 200 MLS/HR; Start 10/15/18 at 07:00 Diagnostic Test (Pha) (Accu-Chek) 1 ea 02 XX ; Start 10/16/18 at 02:00 Insulin Aspart (Novolog Insulin Pen) NOVOLOG *MILD* ALGORITHM WITH MEALS BEDTIME SC Last administered on 10/16/18at 12:37; Admin Dose 1 UNIT; Start 10/15/18 at 07:50 Miscellaneous Information 1 ea NOTE XX ; Start 10/15/18 at 08:00 Glucose (Glutose) 15 gm Q15M PRN PO DECREASED GLUCOSE; Start 10/15/18 at 08:00 Glucose (Glutose) 22.5 gm Q15M PRN PO DECREASED GLUCOSE; Start 10/15/18 at 08:00 Dextrose (D50w Syringe) 25 ml Q15M PRN IV DECREASED GLUCOSE; Start 10/15/18 at 08:00 Dextrose (D50w Syringe) 50 ml Q15M PRN IV DECREASED GLUCOSE; Start 10/15/18 at 08:00 Glucagon (Glucagen) 1 mg Q15M PRN IM DECREASED GLUCOSE; Start 10/15/18 at 08:00 Glucose (Glutose) 15 gm Q15M PRN BUCCAL DECREASED GLUCOSE; Start 10/15/18 at 08:00 Pantoprazole (Protonix Tab) 40 mg DAILY@06 PO ; Start 10/17/18 at 06:00 Allergies: Coded Allergies: No Known Allergies (Verified Allergy, Unknown, 04/30/18) Past Surgical History Past Surgical Hx: other Family History Significant Family History: no pertinent family hx Social History Alcohol Use: rarely Smoking Status: Never smoker Drug Use: none Exam/Review of Systems Vital Signs Vitals Vital Signs Date Temp Pulse Resp B/P (MAP) Pulse Ox O2 O2 Flow FiO2 Time Delivery Rate 10/16/18 97.8 18 120/62 96 Room Air 14:00 (81) 10/16/18 63 07:37 Intake and Output 10/15/18 10/15/18 10/16/18 1515:00 23:00 07:00 IntakeIntake Total 1080 ml 1640 ml 940 ml OutputOutput Total 250 ml BalanceBalance 830 ml 1640 ml 940 ml Exam Constitutional: alert, oriented, well developed Psych: no complaints, nl mood/affect Head: normocephalic, atraumatic Eyes: nl conjunctiva, EOMI, nl lids ENMT: nl external ears & nose, nl lips & teeth, nl nasal mucosa & septum Neck: supple, non-tender Respiratory: clear to auscultation, normal air movement Cardiovascular: regular rate and rhythm, nl pulses Gastrointestinal: soft, nl liver, spleen, non-tender Genitourinary - Female: CVA tenderness Musculoskeletal: nl extremities to inspection, nl gait and stance Neurological: nl mental status, nl speech, nl strength Medications Medications Current Medications Sodium Chloride 1,000 ml @ 75 mls/hr [id number] IV Last administered on 10/16/18at 10:39; Admin Dose 75 MLS/HR; Start 10/15/18 at 07:00 Acetaminophen (Tylenol Tab) 650 mg Q6H PRN PO MILD PAIN(1-3)OR ELEVATED TEMP Last administered on 10/15/18at 22:35; Admin Dose 650 MG; Start 10/15/18 at 07:00 Ondansetron HCl (Zofran Inj) 4 mg Q6H PRN IV NAUSEA AND/OR VOMITING; Start 10/15/18 at 07:00 Hydromorphone HCl (Dilaudid) 0.5 mg Q4H PRN IV SEVERE PAIN LEVEL 7-10 Last administered on 10/16/18at 13:48; Admin Dose 0.5 MG; Start 10/15/18 at 07:00 Piperacillin Sod/ Tazobactam Sod 100 ml @ 200 mls/hr Q8 IVPB Last administered on 10/16/18at 13:43; Admin Dose 200 MLS/HR; Start 10/15/18 at 07:00 Diagnostic Test (Pha) (Accu-Chek) 1 ea 02 XX ; Start 10/16/18 at 02:00 Insulin Aspart (Novolog Insulin Pen) NOVOLOG *MILD* ALGORITHM WITH MEALS BEDTIME SC Last administered on 10/16/18at 12:37; Admin Dose 1 UNIT; Start 10/15/18 at 07:50 Miscellaneous Information 1 ea NOTE XX ; Start 10/15/18 at 08:00 Glucose (Glutose) 15 gm Q15M PRN PO DECREASED GLUCOSE; Start 10/15/18 at 08:00 Glucose (Glutose) 22.5 gm Q15M PRN PO DECREASED GLUCOSE; Start 10/15/18 at 08:00 Dextrose (D50w Syringe) 25 ml Q15M PRN IV DECREASED GLUCOSE; Start 10/15/18 at 08:00 Dextrose (D50w Syringe) 50 ml Q15M PRN IV DECREASED GLUCOSE; Start 10/15/18 at 08:00 Glucagon (Glucagen) 1 mg Q15M PRN IM DECREASED GLUCOSE; Start 10/15/18 at 08:00 Glucose (Glutose) 15 gm Q15M PRN BUCCAL DECREASED GLUCOSE; Start 10/15/18 at 08:00 Pantoprazole (Protonix Tab) 40 mg DAILY@06 PO ; Start 10/17/18 at 06:00 SEBASTIAN FORDE MD Oct 16, 2018 16:54
--- NOTE | 2018-10-16 17:05 | PN ---
Date/Time of Note Date/Time of Note DATE: 10/16/18 TIME: 17:05 Assessment/Plan VTE Prophylaxis Risk score (from Ns)>0 risk: 2 SCD applied (from Ns): Yes Pharmacological prophylaxis: NA/contraindicated Pharm contraindication: low risk/ambulating Lines/Catheters IV [facility] (from [facility]): Peripheral IV Assessment/Plan Hospital Course 48-year-old female presenting with: 1. 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 Patient had a history of E. coli in the past. 2. History of hysterectomy and bilateral oophorectomy. 3. Fever secondary to #1. 4. Horseshoe shaped kidneys. 5. Stable left pancreatic cystic mass. 6. Diabetes. 7. Hyperlipidemia. 8. History of herpes infection. plan - pain control - advance diet - iv abx - per Dr Gee pt will need clearence for cystic pancreas - iv fluids - ucx pending Result Diagram: 10/16/18 0422 10/16/18 0422 Results 24hrs Laboratory Tests Test 10/15/18 18:18 10/15/18 21:28 10/16/18 04:22 10/16/18 08:03 Bedside Glucose 231 H 146 162 White Blood Count 5.9 # Red Blood Count 3.62 L Hemoglobin 9.1 L Hematocrit 28.8 L Mean Corpuscular Volume 79.6 L Mean Corpuscular 25.1 L Hemoglobin Mean Corpuscular 31.6 L Hemoglobin Concent Red Cell Distribution 16.8 H Width Platelet Count 129 L Mean Platelet Volume 12.5 H Immature Granulocytes % 0.200 Neutrophils % 63.9 Lymphocytes % 19.6 Monocytes % 14.4 H Eosinophils % 1.7 Basophils % 0.2 Nucleated Red Blood 0.0 Cells % Immature Granulocytes # 0.010 Neutrophils # 3.8 Lymphocytes # 1.2 Monocytes # 0.9 Eosinophils # 0.1 Basophils # 0.0 Nucleated Red Blood 0.0 Cells # Sodium Level 140 Potassium Level 4.2 Chloride Level 111 H Carbon Dioxide Level 24 Anion Gap 5 Blood Urea Nitrogen 8 # Creatinine 0.65 Est Glomerular Filtrat > 60 Rate mL/min Glucose Level 160 # Calcium Level 9.9 Phosphorus Level 3.1 Magnesium Level 2.1 Test 10/16/18 12:32 Bedside Glucose 162 Subjective 24 Hr Interval Summary Free Text/Dictation feels better today wants surgery for stone to be done Exam/Review of Systems Vital Signs Vitals Vital Signs Date Temp Pulse Resp B/P (MAP) Pulse Ox O2 O2 Flow FiO2 Time Delivery Rate 10/16/18 97.8 18 120/62 96 Room Air 14:00 (81) 10/16/18 63 07:37 Intake and Output 10/15/18 10/15/18 10/16/18 1515:00 23:00 07:00 IntakeIntake Total 1080 ml 1640 ml 940 ml OutputOutput Total 250 ml BalanceBalance 830 ml 1640 ml 940 ml Exam ENERAL: The patient is awake, alert, oriented, appears to be in mild distress secondary to pain. HEENT: Pupils equal, round, reactive to light. NECK: Supple, no JVD. HEART: Regular rhythm. LUNGS: Clear to auscultate bilaterally. ABDOMEN: Soft, nontender, nondistended, positive normoactive bowel sounds. The patient has well-healed surgical scars. The patient has CVA tenderness on the right and on the left, more on the left. EXTREMITIES: No clubbing, cyanosis, or edema. Medications Medications Current Medications Sodium Chloride 1,000 ml @ 75 mls/hr [id number] IV Last administered on 10/16/18at 10:39; Admin Dose 75 MLS/HR; Start 10/15/18 at 07:00 Acetaminophen (Tylenol Tab) 650 mg Q6H PRN PO MILD PAIN(1-3)OR ELEVATED TEMP Last administered on 10/15/18at 22:35; Admin Dose 650 MG; Start 10/15/18 at 07:00 Ondansetron HCl (Zofran Inj) 4 mg Q6H PRN IV NAUSEA AND/OR VOMITING; Start at 07:00 Hydromorphone HCl (Dilaudid) 0.5 mg Q4H PRN IV SEVERE PAIN LEVEL 7-10 Last administered on 10/16/18at 13:48; Admin Dose 0.5 MG; Start 10/15/18 at 07:00 Piperacillin Sod/ Tazobactam Sod 100 ml @ 200 mls/hr Q8 IVPB Last administered on 10/16/18at 13:43; Admin Dose 200 MLS/HR; Start 10/15/18 at 07:00 Diagnostic Test (Pha) (Accu-Chek) 1 ea 02 XX ; Start 10/16/18 at 02:00 Insulin Aspart (Novolog Insulin Pen) NOVOLOG *MILD* ALGORITHM WITH MEALS BEDTIME SC Last administered on 10/16/18at 12:37; Admin Dose 1 UNIT; Start 10/15/18 at 07:50 Miscellaneous Information 1 ea NOTE XX ; Start 10/15/18 at 08:00 Glucose (Glutose) 15 gm Q15M PRN PO DECREASED GLUCOSE; Start 10/15/18 at 08:00 Glucose (Glutose) 22.5 gm Q15M PRN PO DECREASED GLUCOSE; Start 10/15/18 at 08:00 Dextrose (D50w Syringe) 25 ml Q15M PRN IV DECREASED GLUCOSE; Start 10/15/18 at 08:00 Dextrose (D50w Syringe) 50 ml Q15M PRN IV DECREASED GLUCOSE; Start 10/15/18 at 08:00 Glucagon (Glucagen) 1 mg Q15M PRN IM DECREASED GLUCOSE; Start 10/15/18 at 08:00 Glucose (Glutose) 15 gm Q15M PRN BUCCAL DECREASED GLUCOSE; Start 10/15/18 at 08: 00 Pantoprazole (Protonix Tab) 40 mg DAILY@06 PO ; Start 10/17/18 at 06:00 CINDI CAZARES MD Oct 16, 2018 17:05
[2018-10-16] MEDS: ACETAMINOPHEN 325 MG TAB PO PRN (18:19)
--- NOTE | 2018-10-16 18:30 | NUR ---
PATIENT COMFORTABLE IN THE DAY. PATIENT COMPLAINED OF SHIVERING AFTER SHOEWER. VITALS CHECKED AND TEMPERATURE 98.3 DEGREES. COMPLAINED OF PAIN AND TYLENOL ADMINISTERED. IV FLUID ON FLOW . ALL SAFETY PRECAUTIONS MAINTAINED. WILL CONTINUE TO MONITOR.
[2018-10-16 19:15] VITALS: BP 153/71; PULSE 86; RESP 18
[2018-10-16] MEDS ORDERED: TOBRAMYCIN 100 MG in SOD CHLORIDE 0.9% 50 ML IVPB SCH (20:00)
--- NOTE | 2018-10-16 20:03 | NUR ---
DR CORONEL NOTIFIED OF TEMP 102.3,WITH ORDERS MADE AND CARRIED OUT. COOLING MEASURES DONE.
[2018-10-17 02:00] VITALS: BP 140/64; PULSE 59; RESP 16
[2018-10-17] MEDS: ACCU-CHEK XX SCH (02:00)
[2018-10-17] MEDS: SOD CHLORIDE 0.45% 1,000 ML IV SCH ×2 (05:06→15:49)
[2018-10-17] MEDS: PIPER-TAZO 3.375 GM IV (PMX) 100 ML IVPB SCH ×3 (06:08→21:09)
[2018-10-17] MEDS: PANTOPRAZOLE (EC) 40 MG TAB PO SCH (06:08)
[2018-10-17 07:41] VITALS: BP 150/77; PULSE 71; RESP 18
[2018-10-17] MEDS: INSULIN ASPART [NOVOLOG] 3 ML PEN SC SCH ×4 (07:50→21:00)
--- NOTE | 2018-10-17 11:45 | NUR ---
REYCEIVED REPORT FROM BIANCA CHIU.PATIENT WAS C/O NO BM FOR 5 DAYS,WITH BS ACTIVE,SOFT AND NONDISTENDED ABDOMEN.WILL FFUP ORDER FOR LAXATIVES.
--- NOTE | 2018-10-17 11:58 | NUR ---
NURSE: Transfer of care note: Gave report to [facility] RN for continuation of care. Endorsed status of PIV to [facility]. Pt currently in stable condition at time of transfer of care.
[2018-10-17] MEDS ORDERED: SENNA TAB PO PRN ×2 (12:00)
[2018-10-17] MEDS ORDERED: DOCUSATE SODIUM 100 MG CAP PO PRN (12:00)
[2018-10-17] MEDS: ACETAMINOPHEN 325 MG TAB PO PRN (13:37)
--- NOTE | 2018-10-17 15:05 | PN ---
Date/Time of Note Date/Time of Note DATE: 10/17/18 TIME: 15:00 Assessment/Plan VTE Prophylaxis Risk score (from Ns)>0 risk: 3 SCD applied (from Ns): Yes Pharmacological prophylaxis: NA/contraindicated Pharm contraindication: low risk/ambulating Lines/Catheters IV C[facility]ter Type (from [facility] [place] Peripheral IV Urinary Cath still in place: No Assessment/Plan Hospital Course 48-year-old female presenting with: 1. 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 Patient had a history of E. coli in the past. Again with E. coli 2. History of hysterectomy and bilateral oophorectomy. 3. Fever secondary to #1. 4. Horseshoe shaped kidneys. 5. Stable left pancreatic cystic mass. 6. Diabetes. 7. Hyperlipidemia. 8. History of herpes infection. plan -Monitor fevers as patient had 102 fever yesterday -Continue with Zosyn for now -Spoke to Dr. Cedlilo patient will need a percutaneous needle nephro lithotripsy as an outpatient once patient has a negative urine culture he will evaluate her as an outpatient - pain control -Per GI need a repeat CT scan in 6 months the pancreatic cyst has been stable since July - iv fluids -Monitor blood pressure Result Diagram: 10/16/18 0422 10/16/18 0422 Results 24hrs Laboratory Tests Test 10/16/18 17:34 10/16/18 22:16 10/17/18 09:50 10/17/18 12:30 Bedside Glucose 100 125 112 142 Subjective 24 Hr Interval Summary Free Text/Dictation Patient had fever of 102 yesterday, given tobramycin and started on Zosyn Exam/Review of Systems Vital Signs Vitals Vital Signs Date Temp Pulse Resp B/P (MAP) Pulse Ox O2 O2 Flow FiO2 Time Delivery Rate 10/17/18 98.3 71 18 150/77 100 Room Air 07:41 (101) Intake and Output 10/16/18 10/16/18 10/17/18 1515:00 23:00 07:00 IntakeIntake Total 1600 ml 1072.5 ml 800 ml BalanceBalance 1600 ml 1072.5 ml 800 ml Exam ENERAL: The patient is awake, alert, oriented, appears to be in mild distress secondary to pain. HEENT: Pupils equal, round, reactive to light. NECK: Supple, no JVD. HEART: Regular rhythm. LUNGS: Clear to auscultate bilaterally. ABDOMEN: Soft, nontender, nondistended, positive normoactive bowel sounds. The patient has well-healed surgical scars. The patient has CVA tenderness on the right and on the left, more on the left.improved EXTREMITIES: No clubbing, cyanosis, or edema. Medications Medications Current Medications Sodium Chloride 1,000 ml @ 75 mls/hr [id number] IV Last administered on 10/17/18at 05:06; Admin Dose 75 MLS/HR; Start 10/15/18 at 07:00 Acetaminophen (Tylenol Tab) 650 mg Q6H PRN PO MILD PAIN(1-3)OR ELEVATED TEMP Last administered on 10/17/18at 13:37; Admin Dose 650 MG; Start 10/15/18 at 07:00 Ondansetron HCl (Zofran Inj) 4 mg Q6H PRN IV NAUSEA AND/OR VOMITING; Start 10/15/18 at 07:00 Hydromorphone HCl (Dilaudid) 0.5 mg Q4H PRN IV SEVERE PAIN LEVEL 7-10 Last administered on 10/16/18at 20:10; Admin Dose 0.5 MG; Start 10/15/18 at 07:00 Piperacillin Sod/ Tazobactam Sod 100 ml @ 200 mls/hr Q8 IVPB Last administered on 10/17/18at 13:32; Admin Dose 200 MLS/HR; Start 10/15/18 at 07:00 Diagnostic Test (Pha) (Accu-Chek) 1 ea 02 XX ; Start 10/16/18 at 02:00 Insulin Aspart (Novolog Insulin Pen) NOVOLOG *MILD* ALGORITHM WITH MEALS BEDTIME SC Last administered on 10/17/18at 12:46; Admin Dose 1 UNIT; Start 10/15/18 at 07:50 Miscellaneous Information 1 ea NOTE XX ; Start 10/15/18 at 08:00 Glucose (Glutose) 15 gm Q15M PRN PO DECREASED GLUCOSE; Start 10/15/18 at 08:00 Glucose (Glutose) 22.5 gm Q15M PRN PO DECREASED GLUCOSE; Start 10/15/18 at 08:00 Dextrose (D50w Syringe) 25 ml Q15M PRN IV DECREASED GLUCOSE; Start 10/15/18 at 08:00 Dextrose (D50w Syringe) 50 ml Q15M PRN IV DECREASED GLUCOSE; Start 10/15/18 at 08:00 Glucagon (Glucagen) 1 mg Q15M PRN IM DECREASED GLUCOSE; Start 10/15/18 at 08:00 Glucose (Glutose) 15 gm Q15M PRN BUCCAL DECREASED GLUCOSE; Start 10/15/18 at 08:00 Pantoprazole (Protonix Tab) 40 mg DAILY@06 PO Last administered on 10/17/18at 06:08; Admin Dose 40 MG; Start 10/17/18 at 06:00 Senna (Senokot) 2 tab BID PRN PO CONSTIPATION Last administered on 10/17/18at 12:26; Admin Dose 2 TAB; Start 10/17/18 at 12:00 Docusate Sodium (Colace) 100 mg BID PRN PO CONSTIPATION; Start 10/17/18 at 12:00 CINDI CAZARES MD Oct 17, 2018 15:05
[2018-10-17 15:14] VITALS: BP 169/79; PULSE 57; RESP 18
--- NOTE | 2018-10-17 15:15 | CONS ---
Date/Time of Note Date/Time of Note DATE: 10/17/18 TIME: 15:14 Assessment/Plan Assessment/Plan Hospital Course Impression: 1. stable pancreatic cysts since Jul 2018 2. kidney stone 3. possible pyelonephritis Recommendations: 1. repeat CT in 6 months time, if larger then will need to see GI for EUS with FNA of the pancreatic cysts. [facility] be done at [facility], [facility] or [facility] 2. treat possible pyelonephritis 3. urology for kidney stone 4. patient understood the plan and all of her questions were answered to her ful l satisfaction Result Diagram: 10/16/18 0422 10/16/18 0422 Results 24hrs Laboratory Tests Test 10/16/18 17:34 10/16/18 22:16 10/17/18 09:50 10/17/18 12:30 Bedside Glucose 100 125 112 142 Consultation Date/Type/Reason Admit Date/Time Oct 15, 2018 at 04:40 Initial Consult Date 10/16/18 Type of Consult Gastroenterology Requesting Provider: ASHANTI CORONEL MD 24 HR Interval Summary Free Text/Dictation tolerates po, no n/v Exam/Review of Systems Vital Signs Vitals Vital Signs Date Temp Pulse Resp B/P (MAP) Pulse Ox O2 O2 Flow FiO2 Time Delivery Rate 10/17/18 98.3 71 18 150/77 100 Room Air 07:41 (101) Intake and Output 10/16/18 10/16/18 10/17/18 1515:00 23:00 07:00 IntakeIntake Total 1600 ml 1072.5 ml 800 ml BalanceBalance 1600 ml 1072.5 ml 800 ml Exam Constitutional: alert, oriented, well developed Psych: no complaints, nl mood/affect Head: normocephalic, atraumatic Eyes: nl conjunctiva, EOMI, nl lids ENMT: nl external ears & nose, nl lips & teeth, nl nasal mucosa & septum Neck: supple, non-tender Respiratory: clear to auscultation, normal air movement Cardiovascular: regular rate and rhythm, nl pulses Gastrointestinal: soft, non-tender, bowel sounds Medications Medications Current Medications Sodium Chloride 1,000 ml @ 75 mls/hr [id number] IV Last administered on 10/17/18at 05:06; Admin Dose 75 MLS/HR; Start 10/15/18 at 07:00 Acetaminophen (Tylenol Tab) 650 mg Q6H PRN PO MILD PAIN(1-3)OR ELEVATED TEMP Last administered on 10/17/18at 13:37; Admin Dose 650 MG; Start 10/15/18 at 07:00 Ondansetron HCl (Zofran Inj) 4 mg Q6H PRN IV NAUSEA AND/OR VOMITING; Start 10/15/18 at 07:00 Hydromorphone HCl (Dilaudid) 0.5 mg Q4H PRN IV SEVERE PAIN LEVEL 7-10 Last administered on 10/16/18at 20:10; Admin Dose 0.5 MG; Start 10/15/18 at 07:00 Piperacillin Sod/ Tazobactam Sod 100 ml @ 200 mls/hr Q8 IVPB Last administered on 10/17/18at 13:32; Admin Dose 200 MLS/HR; Start 10/15/18 at 07:00 Diagnostic Test (Pha) (Accu-Chek) 1 ea 02 XX ; Start 10/16/18 at 02:00 Insulin Aspart (Novolog Insulin Pen) NOVOLOG *MILD* ALGORITHM WITH MEALS BEDTIME SC Last administered on 10/17/18at 12:46; Admin Dose 1 UNIT; Start 10/15/18 at 07:50 Miscellaneous Information 1 ea NOTE XX ; Start 10/15/18 at 08:00 Glucose (Glutose) 15 gm Q15M PRN PO DECREASED GLUCOSE; Start 10/15/18 at 08:00 Glucose (Glutose) 22.5 gm Q15M PRN PO DECREASED GLUCOSE; Start 10/15/18 at 08:00 Dextrose (D50w Syringe) 25 ml Q15M PRN IV DECREASED GLUCOSE; Start 10/15/18 at 08:00 Dextrose (D50w Syringe) 50 ml Q15M PRN IV DECREASED GLUCOSE; Start 10/15/18 at 08:00 Glucagon (Glucagen) 1 mg Q15M PRN IM DECREASED GLUCOSE; Start 10/15/18 at 08:00 Glucose (Glutose) 15 gm Q15M PRN BUCCAL DECREASED GLUCOSE; Start 10/15/18 at 08:00 Pantoprazole (Protonix Tab) 40 mg DAILY@06 PO Last administered on 10/17/18at 06:08; Admin Dose 40 MG; Start 10/17/18 at 06:00 Senna (Senokot) 2 tab BID PRN PO CONSTIPATION Last administered on 10/17/18at 12:26; Admin Dose 2 TAB; Start 10/17/18 at 12:00 Docusate Sodium (Colace) 100 mg BID PRN PO CONSTIPATION; Start 10/17/18 at 12:00 SEBASTIAN FORDE MD Oct 17, 2018 15:15
--- NOTE | 2018-10-17 16:10 | NUR ---
Continuation of care: Received report from [facility] CHIU for continuation of care. Pt currently in stable condition at time of transfer of care.
--- NOTE | 2018-10-17 16:13 | NUR ---
EOSS;PATEIENT ALERT ,ORIENTED X4.TOLERATING CARB CONTROL DIET.NO REPORT OF FEVERS,HAD C/O HEADACHE MEDICATED WITH TYLENOL WITH RELEIF NOTED.PATIENT VOIDS ADEQUATELY WITH URINE CLEAR YELLOW,NO BLOOD AND FOUL ODOR. ADVISED PATIENT TO INCREASE ORAL FLUID INTAKE AND TEJAL CARE.PLAN IS FOR DC HOME IN AM PER LOAN MANAGER WITH PO ATB.
[2018-10-17 20:03] VITALS: BP 138/78; PULSE 52; RESP 20
--- NOTE | 2018-10-17 20:15 | NUR ---
EOSS: Pt resting comfortably in bed. No acute changes. Plan of care explained once again to patient and family. Family verbalized understanding. Pt educated on prevention of kidney stones, verbalized understanding. Pt only required 1 unit of insulin at lunch today, no other insulin administered by this nurse or [facility]. Pt resting comfortably in bed, call light within reach.
[2018-10-18] MEDS: ACCU-CHEK XX SCH (01:48)
[2018-10-18] MEDS: SOD CHLORIDE 0.45% 1,000 ML IV SCH (05:06)
[2018-10-18] MEDS: PANTOPRAZOLE (EC) 40 MG TAB PO SCH (05:06)
[2018-10-18] MEDS: PIPER-TAZO 3.375 GM IV (PMX) 100 ML IVPB SCH (05:06)
--- NOTE | 2018-10-18 06:13 | NUR ---
PT RESTING WITH EYES CLOSED ST THIS TIME. NO SS DISCOMFORT NOTED. DENIED PAIN THIS SHIFT. I/W BED MOBILITY. UP TO BR W/SBA. PT STATES SHE MIGHT GO HOME TODAY. WILL CONTINUE POC
[2018-10-18 07:30] VITALS: BP 129/72; PULSE 65; RESP 18
--- NOTE | 2018-10-18 08:16 | CONS ---
Date/Time of Note Date/Time of Note DATE: 10/18/18 TIME: 08:15 Assessment/Plan Assessment/Plan Hospital Course Impression: 1. stable pancreatic cysts since Jul 2018 2. kidney stone 3. possible pyelonephritis Recommendations: 1. repeat CT in 6 months time, if larger then will need to see GI for EUS with FNA of the pancreatic cysts. This can be done at [facility], [facility] or [facility] 2. treat possible pyelonephritis per primary and ID 3. urology for kidney stone management Result Diagram: 10/18/18 0445 10/18/18 0445 Results 24hrs Laboratory Tests Test 10/17/18 09:50 10/17/18 12:30 10/17/18 18:19 10/17/18 21:12 Bedside Glucose 112 142 131 170 Test 10/18/18 04:45 White Blood Count 5.5 Red Blood Count 3.90 L Hemoglobin 9.9 L Hematocrit 30.1 L Mean Corpuscular Volume 77.2 L Mean Corpuscular 25.4 L Hemoglobin Mean Corpuscular 32.9 Hemoglobin Concent Red Cell Distribution 15.8 H Width Platelet Count 201 # Mean Platelet Volume 11.7 H Immature Granulocytes % 0.200 Neutrophils % 60.6 Lymphocytes % 23.0 Monocytes % 11.1 H Eosinophils % 4.6 Basophils % 0.5 Nucleated Red Blood 0.0 Cells % Immature Granulocytes # 0.010 Neutrophils # 3.3 Lymphocytes # 1.3 Monocytes # 0.6 Eosinophils # 0.3 Basophils # 0.0 Nucleated Red Blood 0.0 Cells # Sodium Level 140 Potassium Level 3.9 Chloride Level 107 Carbon Dioxide Level 26 Anion Gap 7 Blood Urea Nitrogen 14 Creatinine 0.66 Est Glomerular Filtrat > 60 Rate mL/min Glucose Level 176 Calcium Level 10.3 H Consultation Date/Type/Reason Admit Date/Time Oct 15, 2018 at 04:40 Initial Consult Date 10/16/18 Type of Consult Gastroenterology Requesting Provider: ASHANTI CORONEL MD 24 HR Interval Summary Free Text/Dictation resting peacefully Exam/Review of Systems Vital Signs Vitals Vital Signs Date Temp Pulse Resp B/P (MAP) Pulse Ox O2 O2 Flow FiO2 Time Delivery Rate 10/18/18 98.5 65 18 129/72 96 07:30 (91) 10/17/18 Room Air 20:03 Intake and Output 1/12/3110/17/18 10/18/18 1515:00 23:00 07:00 IntakeIntake Total 700 ml 1575 ml 1500 ml BalanceBalance 700 ml 1575 ml 1500 ml Exam Constitutional: alert, oriented, well developed Psych: no complaints, nl mood/affect Head: normocephalic, atraumatic Eyes: nl conjunctiva, EOMI, nl lids ENMT: nl external ears & nose, nl lips & teeth, nl nasal mucosa & septum Neck: supple, non-tender Respiratory: clear to auscultation, normal air movement Cardiovascular: regular rate and rhythm, nl pulses Gastrointestinal: soft, non-tender, bowel sounds Medications Medications Current Medications Sodium Chloride 1,000 ml @ 75 mls/hr [id number] IV Last administered on 10/18/18at 05:06; Admin Dose 75 MLS/HR; Start 10/15/18 at 07:00 Acetaminophen (Tylenol Tab) 650 mg Q6H PRN PO MILD PAIN(1-3)OR ELEVATED TEMP Last administered on 10/17/18at 13:37; Admin Dose 650 MG; Start 10/15/18 at 07:00 Ondansetron HCl (Zofran Inj) 4 mg Q6H PRN IV NAUSEA AND/OR VOMITING; Start 10/15/18 at 07:00 Hydromorphone HCl (Dilaudid) 0.5 mg Q4H PRN IV SEVERE PAIN LEVEL 7-10 Last a dministered on 10/16/18at 20:10; Admin Dose 0.5 MG; Start 10/15/18 at 07:00 Piperacillin Sod/ Tazobactam Sod 100 ml @ 200 mls/hr Q8 IVPB Last administered on 10/18/18at 05:06; Admin Dose 200 MLS/HR; Start 10/15/18 at 07:00 Diagnostic Test (Pha) (Accu-Chek) 1 ea 02 XX ; Start 10/16/18 at 02:00 Insulin Aspart (Novolog Insulin Pen) NOVOLOG *MILD* ALGORITHM WITH MEALS BEDTIME SC Last administered on 10/17/18at 12:46; Admin Dose 1 UNIT; Start 10/15/18 at 07:50 Miscellaneous Information 1 ea NOTE XX ; Start 10/15/18 at 08:00 Glucose (Glutose) 15 gm Q15M PRN PO DECREASED GLUCOSE; Start 10/15/18 at 08:00 Glucose (Glutose) 22.5 gm Q15M PRN PO DECREASED GLUCOSE; Start 10/15/18 at 08:00 Dextrose (D50w Syringe) 25 ml Q15M PRN IV DECREASED GLUCOSE; Start 10/15/18 at 08:00 Dextrose (D50w Syringe) 50 ml Q15M PRN IV DECREASED GLUCOSE; Start 10/15/18 at 08:00 Glucagon (Glucagen) 1 mg Q15M PRN IM DECREASED GLUCOSE; Start 10/15/18 at 08:00 Glucose (Glutose) 15 gm Q15M PRN BUCCAL DECREASED GLUCOSE; Start 10/15/18 at 08:00 Pantoprazole (Protonix Tab) 40 mg DAILY@06 PO Last administered on 10/18/18at 05:06; Admin Dose 40 MG; Start 10/17/18 at 06:00 Senna (Senokot) 2 tab BID PRN PO CONSTIPATION Last administered on 10/17/18at 12:26; Admin Dose 2 TAB; Start 10/17/18 at 12:00 Docusate Sodium (Colace) 100 mg BID PRN PO CONSTIPATION; Start 10/17/18 at 12:00 SEBASTIAN FORDE MD Oct 18, 2018 08:16
[2018-10-18] MEDS: INSULIN ASPART [NOVOLOG] 3 ML PEN SC SCH ×2 (09:07→11:40)
--- NOTE | 2018-10-18 12:51 | PN ---
Date/Time of Note Date/Time of Note DATE: 10/18/18 TIME: 12:50 Assessment/Plan VTE Prophylaxis Risk score (from Ns)>0 risk: 1 SCD applied (from [facility]): No SCD contraindicated: low risk/ambulating Pharmacological prophylaxis: NA/contraindicated Pharm contraindication: low risk/ambulating Lines/Catheters IV Catheter Type (from [facility]): Peripheral IV Urinary Cath still in place: No Assessment/Plan Hospital Course 1. 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 Patient had a history of E. coli in the past. Again with E. coli 2. History of hysterectomy and bilateral oophorectomy. 3. Fever secondary to #1. 4. Horseshoe shaped kidneys. 5. Stable left pancreatic cystic mass. 6. Diabetes. 7. Hyperlipidemia. 8. History of herpes infection. 9. Anemia 10. Overweight Assessment/Plan -hypoglycemic control -Monitor fevers as patient had 102 fever yesterday -Continue with Zosyn for now -Spoke to Dr. Cedillo patient will need a percutaneous needle nephro lithotripsy as an outpatient once patient has a negative urine culture he will evaluate her as an outpatient - pain control -Per GI need a repeat CT scan in 6 months the pancreatic cyst has been stable since July - iv fluids -Monitor blood pressure Result Diagram: 10/18/18 0445 10/18/18 0445 Results 24hrs Laboratory Tests Test 10/17/18 18:19 10/17/18 21:12 10/18/18 04:45 10/18/18 08:46 Bedside Glucose 131 170 152 White Blood Count 5.5 Red Blood Count 3.90 L Hemoglobin 9.9 L Hematocrit 30.1 L Mean Corpuscular Volume 77.2 L Mean Corpuscular 25.4 L Hemoglobin Mean Corpuscular 32.9 Hemoglobin Concent Red Cell Distribution 15.8 H Width Platelet Count 201 # Mean Platelet Volume 11.7 H Immature Granulocytes % 0.200 Neutrophils % 60.6 Lymphocytes % 23.0 Monocytes % 11.1 H Eosinophils % 4.6 Basophils % 0.5 Nucleated Red Blood 0.0 Cells % Immature Granulocytes # 0.010 Neutrophils # 3.3 Lymphocytes # 1.3 Monocytes # 0.6 Eosinophils # 0.3 Basophils # 0.0 Nucleated Red Blood 0.0 Cells # Sodium Level 140 Potassium Level 3.9 Chloride Level 107 Carbon Dioxide Level 26 Anion Gap 7 Blood Urea Nitrogen 14 Creatinine 0.66 Est Glomerular Filtrat > 60 Rate mL/min Glucose Level 176 Calcium Level 10.3 H Subjective 24 Hr Interval Summary Constitutional: no complaints, improved Exam/Review of Systems Vital Signs Vitals Vital Signs Date Temp Pulse Resp B/P (MAP) Pulse Ox O2 O2 Flow FiO2 Time Delivery Rate 10/18/18 98.5 65 18 129/72 96 07:30 (91) 10/17/18 Room Air 20:03 Intake and Output 10/17/18 10/17/18 10/18/18 1414:59 22:59 06:59 IntakeIntake Total 700 ml 1575 ml 1500 ml BalanceBalance 700 ml 1575 ml 1500 ml Exam Constitutional: alert, oriented Respiratory: clear to auscultation Cardiovascular: regular rate and rhythm Gastrointestinal: soft Genitourinary - Female: CVA tenderness; No nl adnexae, No nl external genitalia, No CMT, No uterus, No other Medications Medications Current Medications Sodium Chloride 1,000 ml @ 75 mls/hr [id number] IV Last administered on 10/18/18at 05:06; Admin Dose 75 MLS/HR; Start 10/15/18 at 07:00 Acetaminophen (Tylenol Tab) 650 mg Q6H PRN PO MILD PAIN(1-3)OR ELEVATED TEMP Last administered on 10/17/18at 13:37; Admin Dose 650 MG; Start 10/15/18 at 07:00 Ondansetron HCl (Zofran Inj) 4 mg Q6H PRN IV NAUSEA AND/OR VOMITING; Start 10/15/18 at 07:00 Hydromorphone HCl (Dilaudid) 0.5 mg Q4H PRN IV SEVERE PAIN LEVEL 7-10 Last administered on 10/16/18at 20:10; Admin Dose 0.5 MG; Start 10/15/18 at 07:00 Piperacillin Sod/ Tazobactam Sod 100 ml @ 200 mls/hr Q8 IVPB Last administered on 10/18/18at 05:06; Admin Dose 200 MLS/HR; Start 10/15/18 at 07:00 Diagnostic Test (Pha) (Accu-Chek) 1 ea 02 XX ; Start 10/16/18 at 02:00 Insulin Aspart (Novolog Insulin Pen) NOVOLOG *MILD* ALGORITHM WITH MEALS BEDTI ME SC Last administered on 10/18/18at 09:07; Admin Dose 1 UNIT; Start 10/15/18 at 07:50 Miscellaneous Information 1 ea NOTE XX ; Start 10/15/18 at 08:00 Glucose (Glutose) 15 gm Q15M PRN PO DECREASED GLUCOSE; Start 10/15/18 at 08:00 Glucose (Glutose) 22.5 gm Q15M PRN PO DECREASED GLUCOSE; Start 10/15/18 at 08:00 Dextrose (D50w Syringe) 25 ml Q15M PRN IV DECREASED GLUCOSE; Start 10/15/18 at 08:00 Dextrose (D50w Syringe) 50 ml Q15M PRN IV DECREASED GLUCOSE; Start 10/15/18 at 08:00 Glucagon (Glucagen) 1 mg Q15M PRN IM DECREASED GLUCOSE; Start 10/15/18 at 08:00 Glucose (Glutose) 15 gm Q15M PRN BUCCAL DECREASED GLUCOSE; Start 10/15/18 at 08:00 Pantoprazole (Protonix Tab) 40 mg DAILY@06 PO Last administered on 10/18/18at 05:06; Admin Dose 40 MG; Start 10/17/18 at 06:00 Senna (Senokot) 2 tab BID PRN PO CONSTIPATION Last administered on 10/17/18at 12:26; Admin Dose 2 TAB; Start 10/17/18 at 12:00 Docusate Sodium (Colace) 100 mg BID PRN PO CONSTIPATION Last administered on 10/18/18at 09:07; Admin Dose 100 MG; Start 10/17/18 at 12:00 ISRRAEL STROUD Oct 18, 2018 12:51
--- NOTE | 2018-10-18 13:36 | DS ---
Date/Time of Note Date/Time of Note DATE: 10/18/18 TIME: 13:35 Discharge Summary Admission/Discharge Info Admit Date/Time Oct 15, 2018 at 04:40 Discharge Date/Time Discharge Diagnosis UTI Patient Condition: Stable Consults Dr Cedillo, Dr Henriquez, urology, Dr Lindsey, GI Hospital Course This is a 48-year-old female with a past medical history of staghorn calculus, diabetes, presented to the Emergency Department after complaining of left flank pain, fever and nausea for the last 2 to 3 days. The patient has also been saying that she has been noticing that her urine being turned dark. Patient has also had recent recurrent urinary tract infections. The patient was being seen by Dr. Cedillo as an outpatient; however, according to the patient the patient has not had any surgery or any intervention done. On arrival to the ED, vital signs showed a temperature of 100.8. Labs showed white count of 9.9, hemoglobin of 11 9.3, hemoglobin 11.0. UA showed 182 RBCs, 182 WBCs. Urine cultures were pending and the patient was started on NS and Zosyn for further treatment. The patient had also been seen by Dr. Henriquez and the patient had horseshoe shaped kidney and being a 5.8 cm staghorn calculus. He recommended send her to [facility]rolog[facility]. 1. 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 Patient had a history of E. coli in the past. Again with E. coli 2. History of hysterectomy and bilateral oophorectomy. 3. Fever secondary to #1. 4. Horseshoe shaped kidneys. 5. Stable left pancreatic cystic mass. 6. Diabetes. 7. Hyperlipidemia. 8. History of herpes infection. 9. Anemia 10. Overweight during hospitalization pt was on strict hypoglycemic control, We monitored fevers as patient had 102 F. She was continued with Zosyn. Urology consult Dr. Cedillo said that patient will need a percutaneous needle nephro lithotripsy as an outpatient once patient has a negative urine culture he will evaluate her as an outpatient. during hospitalization pt was with good pain control. While NPO she was on IV fluids. Dr Adkins was called as GI consult because pt had existing pancreatic cyst. Per GI she need to repeat CT scan in 6 months the pancreatic cyst has been stable since July 2018.Pt has upcoming appointment with Dr Julio. Home Meds Active Scripts Levofloxacin* (Levofloxacin*) 500 Mg Tablet, 500 MG PO DAILY for 7 Days, TAB Prov:ISRRAEL STROUD 10/18/18 Pantoprazole* (Pantoprazole*) 40 Mg Tablet., 40 MG PO DAILY@06 for 30 Days Prov:ASHANTI CORONEL MD 04/04/18 Reported Medications Hydroxyzine Hcl* (Hydroxyzine Hcl*) 25 Mg Tablet, 25 MG PO QHS PRN for ITCHING, #30 TAB 03/29/18 Metformin Hcl* (Metformin Hcl*) 500 Mg Tablet, 500 MG PO WITH BREAKFAST DINNE, #30 TAB 03/29/18 Follow-up Plan FU dr Julio surgery,pt has an upcoming trev Primary Care Provider Not On Staff Doctor Time spent on discharge: < 30 minutes Pending Labs Laboratory Tests Test 10/17/18 18:19 10/17/18 21:12 10/18/18 04:45 10/18/18 08:46 Bedside 131 170 152 Glucose mg/dL (70-220) mg/dL (70-220) mg/dL (70-220) White Blood 5.5 Count 10^3/ul (4.8-1 0.8) Red Blood 3.90 Count 10^6/ul (4.20- 5.40) Hemoglobin 9.9 g/dl (12.0-16. 0) Hematocrit 30.1 % (37.0-47.0) Mean 77.2 Corpuscular fl (82.0-101.0 Volume ) Mean 25.4 Corpuscular pg (29.0-33.0) Hemoglobin Mean 32.9 Corpuscular g/dl (32.0-37. Hemoglobin Conc 0) ent Red Cell 15.8 Distribution % (11.5-14.5) Width Platelet Count 201 10^3/UL (140-4 15) Mean Platelet 11.7 Volume fl (7.4-10.4) Immature 0.200 Granulocytes % % (0.001-0.429 ) Neutrophils % 60.6 % (39.0-77.0) Lymphocytes % 23.0 % (15.0-51.0) Monocytes % 11.1 % (0.0-11.0) Eosinophils % 4.6 % (0.0-7.0) Basophils % 0.5 % (0.0-2.0) Nucleated Red 0.0 Blood Cells % /100WBC (0.0-0 .0) Immature 0.010 Granulocytes # 10^3/ul (0.0-0 .031) Neutrophils # 3.3 10^3/ul (1.6-7 .5) Lymphocytes # 1.3 10^3/ul (0.8-2 .9) Monocytes # 0.6 10^3/ul (0.3-0 .9) Eosinophils # 0.3 10^3/ul (0.0-0 .5) Basophils # 0.0 10^3/ul (0.0-0 .1) Nucleated Red 0.0 Blood Cells # 10^3/ul (0.0-0 .0) Sodium Level 140 mmol/L (135-14 4) Potassium 3.9 Level mmol/L (3.5-5. 1) Chloride Level 107 mmol/L (97-110 ) Carbon Dioxide 26 Level mmol/L (21-31) Anion Gap 7 (5-13) Blood Urea 14 Nitrogen mg/dl (7-20) Creatinine 0.66 mg/dl (0.44-1. 00) Est Glomerular > 60 Filtrat mL/min (>60) Rate mL/min Glucose Level 176 mg/dl (70-220) Calcium Level 10.3 mg/dl (8.4-10. 2) Test 10/18/18 13:11 Bedside 127 Glucose mg/dL (70-220) ISRRAEL STROUD Oct 18, 2018 13:36
--- NOTE | 2018-10-18 13:36 | PDOCDIS ---
Discharge Instructions CONDITION [id number] Patient Condition: [id number] Stable HOME CARE INSTRUCTIONS: [id number] Special Diet: [id number] CARB CONTROL ACTIVITY: [id number] Activity Restrictions: [id number] Slowly Increase Activity Rest between Activity Avoid heavy lifting FOLLOW UP/APPOINTMENTS Follow-up Plan FU dr Julio surgery,pt has an upcoming trev SCHOOL/WORK RELEASE May return to School/Work with: With Restrictions ISRRAEL STROUD Oct 18, 2018 13:36
[2018-10-18] MEDS ORDERED: LEVO500T10 PO (13:39)
--- NOTE | 2018-10-18 15:30 | NUR ---
Discharge: Pt discharged in wheelchair with volunteers to family member in car. Pt discharged with all personal belongings, including glasses. Pt received discharge instructions, patient health summary, instructions for follow-up and critical access hospital. Pt verbalized understanding. Pt discharged with prescription. Scheduled zosyn not administered per Dr. Tony's approval to send pt home prior to receiving scheduled dose. IV removed, no issues. Pt stable at discharge, A&Ox4.
== END 2018-10-18 15:30 | disposition home or self-care (01) | DRG 690 ==
LOC: FTE 23:17 → MS1 10-15 04:40 → EDBEDREQ 10-15 04:49
PROVIDERS: ADMIT Internal Medicine Nephrology; ATTEND Internal Medicine Nephrology
DX: N39.0 Urinary tract infection, site not specified (principal); K86.2 Cyst of pancreas; N20.0 Calculus of kidney; E11.9 Type 2 diabetes mellitus without complications; E78.00 Pure hypercholesterolemia, unspecified; Q63.1 Lobulated, fused and horseshoe kidney; B96.20 Unspecified Escherichia coli [E. coli] as the cause of diseases classified elsewhere; K76.0 Fatty (change of) liver, not elsewhere classified; D64.9 Anemia, unspecified; E66.3 Overweight; Z68.29 Body mass index [BMI] 29.0-29.9, adult; Z79.84 Long term (current) use of oral hypoglycemic drugs; Z90.710 Acquired absence of both cervix and uterus
CPT/HCPCS: 36415; 71045; 74176; 80048; 80053; 81001; 82962; 83605; 83690; 83735; 84100; 84484; 85025; 85610; 85730; 87040; 87086; 93005; 96365; 96375; C9113; J0696; J1170; J1815; J2405; J2543; J3260; J7030

== ENCOUNTER 2018-11-27 06:09 | Observation (INO) | payer OTHER ==
--- NOTE | 2018-11-26 09:15 | HP ---
DATE OF ADMISSION: 11/27/2018 HISTORY OF PRESENT ILLNESS: The patient is a 48-year-old female with left-sided staghorn calculi, wh ich has been associated with recurrent pyelonephritis, who presents for left percutaneous nephrolitho tripsy. The staghorn calculi are in a horseshoe kidney and nonobstructing in nature. She has receiv ed multiple courses of antibiotic therapy and presents today for first stage percutaneous nephrolitho tripsy with the assistance of Dr. Sears. PAST MEDICAL HISTORY: Chronic abdominal pain, lethargy, body aches, horseshoe kidney, diabetes. PAST SURGICAL HISTORY: . ALLERGIES: NONE. MEDICATIONS: 1. Gabapentin. 2. Metformin. PHYSICAL EXAMINATION: LUNGS: Good breath sounds bilaterally. HEART: Regular rate and rhythm. ABDOMEN: Soft, nondistended, nontender, no palpable masses. Flank, no CVA tenderness. No masses. IMPRESSION: Left nonobstructing staghorn calculi measuring 5.8 cm. PLAN: Percutaneous nephrolithotripsy possible staged intervention, have the procedures perform, pote ntial complications, side effects, including infection, sepsis, renal injury, which could effect both moieties, damage to the surrounding structures, exacerbation of diabetes, extravasation of urine and fluid, recurrence rate staged intervention requirement for removal of nephrostomy tube and ureteral stent, postoperative drainage, all reviewed with the patient. The patient understands the above. Al l questions have been answered multiple times. The patient is to initiate Augmentin 500 mg p.o. b.i. d. prior to surgery. Her preoperative urine culture showed less than 50,000 strep. weight caller to OR, s he will receive 1 gram of vancomycin. Dictated By: ROSETTE FRIAS MD EGR/NTS Conf#: [id number] DID#: [id number] CC: ROSETTE FRIAS MD; MAURIZIO WHITNEY MD;*End*
--- NOTE | 2018-11-26 16:50 | HPN ---
Date/Time of Note Date/Time of Note DATE: 11/26/18 TIME: 16:50 Interval H&P Admission Note Pt. seen H&P reviewed: No system changes TRISTEN GERARD MD Nov 26, 2018 16:50
--- NOTE | 2018-11-26 21:24 | PREAC ---
Date/Time of Note Date/Time of Note DATE: 11/26/18 TIME: 21:07 Anesthesia Eval and Record Evaluation Time Pre-Procedure Interview DATE: 11/26/18 TIME: 21:07 Age 48 Sex female NPO: 8 hrs Preoperative diagnosis LEFT nonobstructing staghorn calculi Planned procedure Dr Sears: Insertion of LEFT nephrostomy tube, Dr Cedillo: Insertion of LEFT ureteral stent, left percutaneous nephrolithotripsy Past Medical History Past Medical History: Includes Endo: Diabetes Renal: Other (has UTI. Dr Cedillo aware and placed pt on Augmentin.) GI: Obesity Surgery & Anesthesia Issues No known issue Meds Anticoagulation: No Beta Yovana within 24 hr: No Reason Beta Yovana not given: Pt. not on B-Yovana Active Scripts Levofloxacin* (Levofloxacin*) 500 Mg Tablet, 500 MG PO DAILY for 7 Days, TAB Prov:ISRRAEL STROUD 10/18/18 Pantoprazole* (Pantoprazole*) 40 Mg Tablet., 40 MG PO DAILY@06 for 30 Days Prov:ASHANTI CORONEL MD 04/04/18 Reported Medications Hydroxyzine Hcl* (Hydroxyzine Hcl*) 25 Mg Tablet, 25 MG PO QHS PRN for ITCHING, #30 TAB 03/29/18 Metformin Hcl* (Metformin Hcl*) 500 Mg Tablet, 500 MG PO WITH BREAKFAST DINNE, #30 TAB 03/29/18 Current Medications Ciprofloxacin/ Dextrose 200 ml @ 200 mls/hr PREOP IVPB ; Start 11/27/18 at 09:00; Stop 11/27/18 at 19:00 Meds reviewed: Yes Allergies Coded Allergies: No Known Allergies (Verified Allergy, Unknown, 04/30/18) Allergies Reviewed: Yes Labs/Studies Labs Reviewed: Reviewed by anesthesiologist test: Negative Studies: ECG, CXR Pre-procedure Exam Airway: Adequate mouth opening (partials upper, pre-existing tooth ache LEFT UPPER), Adequate thyromental dist Mallampati: Mallampati II Teeth: Normal Lung: Normal Heart: Normal ASA Physical Status ASA physical status: 2 Emergency: None Planned Anesthetic General/MAC: ETT Planned Pain Management Parenteral pain med, Local by surgeon Pre-operative Attestations Prior to commencing anesthesia and surgery, the patient was re-evaluated, there was verification of: *The patient's identity *The results of appropriate recent lab work and preoperative vital signs *The above evaluation not changing prior to induction *Anesthetic plan, risk benefits, alternative and complications discussed with patient/family; questions answered; patient/family understands, accepts and wishes to proceed. JENNIFER MIXON Nov 26, 2018 21:24
[2018-11-27] VITALS (23 sets, daily range): BP systolic 117–171; BP diastolic 55–99; PULSE 64–112; RESP 15–38; Ht 167.6 cm; Wt 80.4 kg
[~2018-11-27] VITALS: Ht 167.6 cm; Wt 80.4 kg
[~2018-11-27 06:09] MED LIST changes: +LEVO500T10 PO
[2018-11-27] MEDS ORDERED: METF500T24 PO (06:56)
[2018-11-27] MEDS ORDERED: HYDR-3029 PO (06:56)
[2018-11-27] MEDS ORDERED: ACYC400T2 PO (06:57)
[2018-11-27] MEDS ORDERED: LORA10TA3 PO (06:57)
[2018-11-27] MEDS ORDERED: AMOX1TAB9 PO (06:59)
[2018-11-27] MEDS ORDERED: MIDAZOLAM 1 MG/ML 2 ML INJ ONE (07:02)
[2018-11-27] MEDS ORDERED: PROPOFOL 20 ML ONE (07:02)
[2018-11-27] MEDS ORDERED: ROCURONIUM 50 MG INJ ONE (07:02)
[2018-11-27] MEDS ORDERED: LIDOCAINE 2% (SDV) 5 ML INJ ONE (07:02)
[2018-11-27] MEDS ORDERED: FENTAnyl 50 MCG/ML VIAL ONE ×3 (07:03→09:34)
[2018-11-27] MEDS ORDERED: IOHEXOL 300MG/ML 30 ML BTL ONE (07:13)
[2018-11-27] MEDS ORDERED: VANCOMYCIN 1 GM (PMX) 250 ML ONE (07:46)
[2018-11-27] MEDS ORDERED: LABETALOL HCL 20MG INJ ONE (08:14)
[2018-11-27] MEDS ORDERED: DEXAMETHASONE 4 MG/ML 5 ML INJ ONE (08:20)
[2018-11-27] MEDS ORDERED: FAMOTIDINE 20 MG INJ ONE (08:20)
[2018-11-27] MEDS ORDERED: ONDANSETRON 4 MG INJ ONE (08:20)
[2018-11-27] MEDS ORDERED: METOCLOPRAMIDE 10 MG INJ ONE (08:20)
[2018-11-27] MEDS ORDERED: CIPROFLOXACIN 400 MG in D5W 200 ML IVPB SCH (09:00)
[2018-11-27] MEDS ORDERED: NEOSTIGMINE 3 MG/3 ML SYRINGE ONE (09:25)
[2018-11-27] MEDS ORDERED: GLYCOPYRROLATE 0.4 MG INJ ONE (09:25)
[2018-11-27] MEDS ORDERED: MEPERIDINE 25 MG INJ IV PRN (09:30)
[2018-11-27] MEDS ORDERED: OXYCODONE/ACETAMINOPHEN (5/325) TAB PO PRN ×2 (09:30)
[2018-11-27] MEDS ORDERED: MIDAZOLAM 1 MG/ML 2 ML INJ IV PRN (09:30)
[2018-11-27] MEDS ORDERED: ONDANSETRON 4 MG INJ IV PRN (09:30)
[2018-11-27] MEDS ORDERED: PROCHLORPERAZINE 10 MG INJ IV PRN (09:30)
[2018-11-27] MEDS ORDERED: FENTAnyl 50 MCG/ML VIAL IV PRN ×2 (09:30)
--- NOTE | 2018-11-27 11:43 | OPR ---
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
[2018-11-27] MEDS: FENTAnyl 50 MCG/ML VIAL IV PRN ×2 (11:58→12:27)
[2018-11-27] MEDS ORDERED: ACETAMINOPHEN 325 MG TAB PO PRN (12:00)
[2018-11-27] MEDS ORDERED: METOCLOPRAMIDE 10 MG INJ IV PRN (12:00)
[2018-11-27] MEDS ORDERED: HYDROmorphONE 0.5 MG/0.5 ML SYG IV PRN (12:00)
[2018-11-27] MEDS ORDERED: DIPHENHYDRAMINE 25 MG CAP PO PRN (12:00)
[2018-11-27] MEDS ORDERED: DIPHENHYDRAMINE 50 MG INJ IV PRN (12:00)
[2018-11-27] MEDS ORDERED: hydrALAzine 20 MG INJ IV PRN (12:30)
[2018-11-27] MEDS ORDERED: HYDROmorphONE 1 MG/5 ML IV SYRINGE IV PRN ×3 (12:30)
[2018-11-27] MEDS ORDERED: LABETALOL HCL 20MG INJ IV PRN (12:30)
--- NOTE | 2018-11-27 12:30 | PAC ---
Date/Time of Note Date/Time of Note DATE: 11/27/18 TIME: 12:29 Post-Anesthesia Notes Post-Anesthesia Note Last documented vital signs Vital Signs Date Temp Pulse Resp B/P (MAP) Pulse Ox O2 O2 Flow FiO2 Time Delivery Rate 11/27/18 Nasal 2.0 12:00 Cannula 11/27/18 96.9 64 18 117/83 96 07:39 (94) Activity: WNL Respiratory function: WNL Cardiovascular function: WNL Mental status: Baseline Pain reasonably controlled: Yes Hydration appropriate: Yes Nausea/Vomiting absent: Yes JENNIFER MIXON Nov 27, 2018 12:30
--- NOTE | 2018-11-27 12:53 | OPR ---
DATE OF OPERATION: PREOPERATIVE DIAGNOSIS: Left staghorn calculi. POSTOPERATIVE DIAGNOSIS: Left staghorn calculi. OPERATION PERFORMED: Left percutaneous nephrolithotripsy, cystoscopy, left retrograde pyelogram, ins ertion of left ureteral stent. SURGEON: Trae Cedillo MD ANESTHESIA: General. COMPLICATIONS: None. ESTIMATED BLOOD LOSS: Less than 10 mL. OPERATIVE DESCRIPTION: The patient was brought into the operating room and placed on the operating r oom table in supine lithotomy position. She was prepped and draped in the usual fashion after anesth esia was induced. A timeout was undertaken. Appropriate pressure points were padded and she receive d preoperative antibiotic therapy. A KUB with obliques was obtained which demonstrated left staghorn calculi. Approximately the stone measures 3 cm x 8 cm. Rigid cystoscopy was undertaken with a 30-d egree angle lens. No abnormalities of the urethra or bladder lining could be appreciated, bilateral ureteral orifices within normal limits. A left retrograde pyelogram was undertaken with an occluding ureteral catheter with the catheter in the mid ureter which demonstrated normal course and caliber o f the ureter at the level of the ureteropelvic junction extending up into the upper pole is a staghor n calculi measuring approximately 3 cm x 8 cm. It appears that in the upper and mid pole that this d oes extend into the minor calyces. Due to obstruction of the stone, only a minimal amount of contras t was instilled into the collecting system. The balloon on the retention was inflated with 1 m L of contrast in the proximal ureter. This was then attached to a Sarabia catheter and the patient was repositioned back up to the operating table in the prone position where percutaneous access for neph rostomy tube was placed under the care of Dr. Sears from interventional radiology and will be dictated separately. After Dr. Sears inserted a nephrostomy tube into the collecting system, percutaneous nep hrolithotripsy was undertaken. With fluoroscopy, the initial nephrostomy tube was noted to be in the collecting system fdc between the upper and mid pole. Under direct vision, the rigid nephroscop e was inserted into the nephrostomy tube and easily inserted into the collecting system. Under direc t vision, a stone was identified and utilizing the CyberWand, lithotripsy was undertaken under direct vision at all times. Care was taken though to the great vessels. At no time did the scope extent o utside of the collecting system. Excellent fragmentation was undertaken from the mid to upper pole p ortion of the stone down to the ureteropelvic junction. Rather immediately the stone fragmented into 2 portions with attention being taken to the inferior aspect of the stone. The stone was adequately lithotriped and removed with suction with the assistance of direct vision and intermittent fluorosco py. The most inferior aspect of the stone was unable to be accessed as it took a more medial approac h and the access sheath was entering through the upper pole. I did not feel comfortable that this wo uld be easily reached and thus this remained in the inferior pole. The nephrostomy tube was then sli ghtly removed, thus exposing the inferior pole of the stone which was then identified and fragmented. A portion of the stone was noted to be growing into a posterior calyx which was then fragmented unt il I was no longer able to reach this with a rigid scope. At this time, the vast majority of stone w as broken up and she was doing well and thus it was decided to have Dr. Sears insert his nephrostomy t ube, which was easily inserted. He performed a nephrostogram and noted that the [place] with real estate executive assistant d ureteral stent was in proper anatomical position. The [place] portion of the nephrostomy tube was in the renal pelvis and the ureteral stent was in the distal ureter. This was attached to the skin w ith a 0 silk suture. Light pink urine was draining from the nephrostomy tube. At this point, the ba lloon was deflated on the retention catheter and removed intact. The Sarabia catheter was also drainin g light pink urine. A sterile dressing was applied. The nephrostomy tube was left to gravity draina ge and she was transferred to recovery room in stable condition. Followup x-rays will be obtained as an outpatient and then she will undertake staged intervention. There were no noted complications. Dictated By: TRAE CASAS/NTS Conf#: [id number] DID#: [id number]
[2018-11-27] MEDS: VANCOMYCIN 1 GM (PMX) 250 ML IVPB SCH (14:31)
[2018-11-27] MEDS: LACTATED RINGER'S 1,000 ML IV SCH (14:31)
[2018-11-27] MEDS: morphine 2 MG INJ IV PRN ×3 (15:02→20:46)
--- NOTE | 2018-11-27 17:17 | QN ---
Documentation Comment seen and examined CINDI CAZARES MD Nov 27, 2018 17:17
[2018-11-27] MEDS ORDERED: GLUCOSE GEL 15 GRAM TUBE BUCCAL PRN (18:00)
[2018-11-27] MEDS ORDERED: DEXTROSE 50% 50 ML SYRINGE IV PRN ×2 (18:00)
[2018-11-27] MEDS ORDERED: GLUCOSE GEL 15 GRAM TUBE PO PRN ×2 (18:00)
[2018-11-27] MEDS ORDERED: GLUCAGON 1 MG INJ IM PRN (18:00)
[2018-11-27] MEDS: INSULIN ASPART [NOVOLOG] 3 ML PEN SC SCH ×2 (18:35→21:33)
--- NOTE | 2018-11-27 19:42 | HP ---
DATE OF ADMISSION: 11/27/2018 REASON FOR ADMISSION: Status post left PCL insertion, removal of left ureteral stent and left retrog rade pyelogram. HISTORY OF PRESENT ILLNESS: This is a 48-year-old female with a past medical history of diabetes, le ft flank pain, history of multiple pyelonephritis in the past, left staghorn calculus, was admitted e lectively by Dr. Frias for left percutaneous lithotripsy, cystoscopy and left retrograde pyelogram. The patient is status post left percutaneous lithotripsy, cystogram, left retrograde pyelogram, inser tion of left ureteral stent and nephrostomy tube. Currently, patient is in lot of pain as being cont rolled with pain medications. The stone was 8 cm x 3 cm. The patient denied any fever or chills. O n admission, vital signs are blood pressure 153/87, heart rate 84, respirations 18, saturating 93%. Labs showed white count 6.7, hemoglobin 11.3. BMP within normal limits. PAST MEDICAL HISTORY: 1. Diabetes. 2. History of herpes simplex infection. 3. Hypercholesterolemia. 4. Horseshoe kidney with left staghorn calculus, pancreatic cystic lesion. 5. Fatty liver. ALLERGIES: NONE. MEDICATIONS: Taking at home: 1. Metformin. 2. Naproxen. PAST SURGICAL HISTORY: Had a recent ovarian surgery, x2. SOCIAL HISTORY: Denies any history of smoking, alcohol or any drug use. FAMILY HISTORY: Noncontributory. REVIEW OF SYSTEMS: The patient complained of pain in the left flank, also complained of some nausea. Denied any diarrhea, headache, blurry vision. Had nephrostomy tube in place, is all draining red u rine. PHYSICAL EXAMINATION: VITAL SIGNS: The patient does not have any fevers. GENERAL: The patient is awake, alert, oriented, on oxygen. HEENT: Pupils are equal, round and reactive to light. NECK: Supple. No JVD. HEART: Regular rate and rhythm. LUNGS: Clear to auscultate bilaterally. ABDOMEN: Soft, left flank tenderness, well-healed surgical scars. The patient has nephrostomy tubes in place. EXTREMITIES: No clubbing, cyanosis or edema. LABORATORY DATA: White count of 6.7, hemoglobin 11.3, platelet count 176. BMP within normal limit. Glucose of 281. ASSESSMENT: 1. This is a 48-year-old female with left staghorn calculus status post percutaneous lithotripsy, cy stoscopy, left retrograde pyelogram, insertion of left ureteral stent and a nephrostomy tube. 2. History of urinary tract infections. 3. History of herpes simplex. 4. Diabetes. 5. Hyperlipidemia. PLAN: At this period of time, the patient is admitted to med/surg unit. The patient is on pain cont rol. The patient was on IV vancomycin. The patient is also receiving Ringer's lactate. We will mon itor the output from the nephrostomy tube. Rest of the treatment will depend on the patient's hospit alization course. Dictated By: CINDI GROSSMAN/ROMERO Conf#: [id number] DID#: [id number] CC: ROSETTE FRIAS MD;*End*
[2018-11-27] MEDS: FAMOTIDINE 20 MG TAB PO SCH (21:00)
[2018-11-27] MEDS ORDERED: FAMOTIDINE 20 MG INJ IV SCH (21:00)
[2018-11-28] MEDS: morphine 2 MG INJ IV PRN ×3 (00:34→20:40)
[2018-11-28] MEDS: ACCU-CHEK XX SCH (02:00)
[2018-11-28] MEDS: LACTATED RINGER'S 1,000 ML IV SCH ×2 (04:23→07:40)
[2018-11-28 07:30] VITALS: BP 132/70; PULSE 111; RESP 18
[2018-11-28] MEDS: INSULIN ASPART [NOVOLOG] 3 ML PEN SC SCH ×4 (08:40→20:49)
[2018-11-28] MEDS: FAMOTIDINE 20 MG TAB PO SCH ×2 (08:43→20:40)
[2018-11-28] MEDS: HYDROCODONE/APAP (10/325) TAB PO PRN ×3 (09:34→21:25)
--- NOTE | 2018-11-28 10:00 | CONS ---
DATE OF ADMISSION: 11/27/2018 DATE OF CONSULTATION: HISTORY OF PRESENT ILLNESS: The patient is status post postop day #1, Left percutaneous nephrolithot ripsy. Patient has generalized pain, as well as lethargy. She is eating solid food without any naus ea or vomiting. The patient states that she has generalized abdominal pain mostly in the periumbilic al region as well as lethargy. Of note, the patient has a history of generalized pain and lethargy a s well as a history of a pancreatic mass and adnexal mass, all of which were evaluated prior to bring ing the patient for a percutaneous nephrolithotripsy. The patient is lying in bed comfortably and is able to talk. Patient is not moving well in the bed. She states she has generalized pain. PHYSICAL EXAMINATION: VITAL SIGNS: Blood pressure 132/70, heart rate 111, temperature 99.8. CHEST: Decreased breath sounds at the base. ABDOMEN: Soft, nondistended, nontender except patient states she has pain in the periumbilical regio n. No rebound, no guarding. Positive bowel sound. Flank, no ecchymosis. Left nephrostomy tube caroline inage with light pink urine, no noted clots. Nephrostomy tube irrigated. This limited secondary to patient comfort. There is no hematoma around the wound. The wound is clean, dry and intact. EXTREMITIES: No calf tenderness. Sarabia catheter draining clear yellow urine. LABORATORY DATA: Yesterday patient's hemoglobin was 11.3 and today is 10.2. White blood count 7.8. Creatinine 0.65. IMPRESSION: Status post left percutaneous nephrolithotripsy with history of significant generalized pain and lethargy, history of pancreatic mass and adnexal mass. PLAN: CT scan of the abdomen and pelvis without contrast. Chest x-ray, incentive spirometer suggest s the patient attempt to ambulate. Follow up with her. Will request follow up with PCP, Dr. Tony today. Dictated By: ROSETTE CASAS/NTS Conf#: [id number] DID#: [id number]
--- NOTE | 2018-11-28 10:07 | PN ---
Date/Time of Note Date/Time of Note DATE: 11/28/18 TIME: 10:07 Assessment/Plan VTE Prophylaxis Risk score (from Ns)>0 risk: 1 SCD applied (from Ns): Yes Pharmacological prophylaxis: NA/contraindicated Pharm contraindication: low risk/ambulating Lines/Catheters IV [facility]from [facility] Peripheral IV Urinary Cath still in place: Yes Reason Cath still needed: urinary retention Assessment/Plan Hospital Course . 48-year-old female with 1 left staghorn calculus status post percutaneous lithotripsy, cystoscopy, left retrograde pyelogram, insertion of left ureteral stent and a nephrostomy tube.pod# 2. History of urinary tract infections. 3. History of herpes simplex. 4. Diabetes. 5. Hyperlipidemia. PLAN - Pain meds - CT a+p ordered - Shoulder Xray - diet - PT - CW PCNT Result Diagram: 11/28/18 0541 11/27/18 1229 Results 24hrs Laboratory Tests Test 11/27/18 11:50 11/27/18 12:29 11/27/18 18:14 11/27/18 21:18 Bedside Glucose 226 H 213 222 H White Blood Count 6.7 # Red Blood Count 4.37 Hemoglobin 11.3 L Hematocrit 35.9 L Mean Corpuscular 82.2 Volume Mean Corpuscular 25.9 L Hemoglobin Mean Corpuscular 31.5 L Hemoglobin Concent Red Cell 16.8 H Distribution Width Platelet Count 176 Mean Platelet 12.3 H Volume Immature 1.000 H Granulocytes % Neutrophils % 80.1 H Lymphocytes % 15.7 Monocytes % 1.9 Eosinophils % 0.7 Basophils % 0.6 Nucleated Red 0.0 Blood Cells % Immature 0.070 H Granulocytes # Neutrophils # 5.4 Lymphocytes # 1.1 Monocytes # 0.1 L Eosinophils # 0.1 Basophils # 0.0 Nucleated Red 0.0 Blood Cells # Sodium Level 140 Potassium Level 3.7 Chloride Level 110 Carbon Dioxide 22 Level Anion Gap 8 Blood Urea 13 Nitrogen Creatinine 0.65 Est Glomerular > 60 Filtrat Rate mL/min Glucose Level 281 H Calcium Level 9.3 Test 11/28/18 04:12 11/28/18 05:41 11/28/18 07:09 11/28/18 08:31 Bedside Glucose 171 218 White Blood Count 7.8 Red Blood Count 3.94 L Hemoglobin 10.2 L Hematocrit 31.6 L Mean Corpuscular 80.2 L Volume Mean Corpuscular 25.9 L Hemoglobin Mean Corpuscular 32.3 Hemoglobin Concent Red Cell 17.2 H Distribution Width Platelet Count 153 Mean Platelet 12.4 H Volume Immature 0.400 Granulocytes % Neutrophils % 89.0 H Lymphocytes % 4.6 L Monocytes % 5.9 Eosinophils % 0.0 Basophils % 0.1 Nucleated Red 0.0 Blood Cells % Immature 0.030 Granulocytes # Neutrophils # 6.9 Lymphocytes # 0.4 L Monocytes # 0.5 Eosinophils # 0.0 Basophils # 0.0 Nucleated Red 0.0 Blood Cells # Lab Scanned Report REFERENCE LAB Test 11/28/18 09:45 Urine NEGATIVE Test Subjective 24 Hr Interval Summary Free Text/Dictation She complains problems in breathing back pain Flank pain Shoulder pain Exam/Review of Systems Exam Vitals Vital Signs Date Temp Pulse Resp B/P (MAP) Pulse Ox O2 O2 Flow FiO2 Time Delivery Rate 11/28/18 99.8 111 18 132/70 92 Room Air 07:30 (90) 11/27/18 2.0 14:00 Intake and Output 11/27/18 11/27/18 11/28/18 1515:00 23:00 07:00 IntakeIntake Total 2200 ml 670 ml 1030 ml OutputOutput Total 30 ml 750 ml 850 ml BalanceBalance 2170 ml -80 ml 180 ml Exam ENERAL: The patient is awake, alert, oriented, on oxygen. HEENT: Pupils are equal, round and reactive to light. NECK: Supple. No JVD. HEART: Regular rate and rhythm. LUNGS: Clear to auscultate bilaterally. ABDOMEN: Soft, left flank tenderness, well-healed surgical scars. The patient has nephrostomy tubes in place. EXTREMITIES: No clubbing, cyanosis or edema. Results Results 24hrs Laboratory Tests Test 11/27/18 11:50 11/27/18 12:29 11/27/18 18:14 11/27/18 21:18 Bedside Glucose 226 H 213 222 H White Blood Count 6.7 # Red Blood Count 4.37 Hemoglobin 11.3 L Hematocrit 35.9 L Mean Corpuscular 82.2 Volume Mean Corpuscular 25.9 L Hemoglobin Mean Corpuscular 31.5 L Hemoglobin Concent Red Cell 16.8 H Distribution Width Platelet Count 176 Mean Platelet 12.3 H Volume Immature 1.000 H Granulocytes % Neutrophils % 80.1 H Lymphocytes % 15.7 Monocytes % 1.9 Eosinophils % 0.7 Basophils % 0.6 Nucleated Red 0.0 Blood Cells % Immature 0.070 H Granulocytes # Neutrophils # 5.4 Lymphocytes # 1.1 Monocytes # 0.1 L Eosinophils # 0.1 Basophils # 0.0 Nucleated Red 0.0 Blood Cells # Sodium Level 140 Potassium Level 3.7 Chloride Level 110 Carbon Dioxide 22 Level Anion Gap 8 Blood Urea 13 Nitrogen Creatinine 0.65 Est Glomerular > 60 Filtrat Rate mL/min Glucose Level 281 H Calcium Level 9.3 Test 11/28/18 04:12 11/28/18 05:41 11/28/18 07:09 11/28/18 08:31 Bedside Glucose 171 218 White Blood Count 7.8 Red Blood Count 3.94 L Hemoglobin 10.2 L Hematocrit 31.6 L Mean Corpuscular 80.2 L Volume Mean Corpuscular 25.9 L Hemoglobin Mean Corpuscular 32.3 Hemoglobin Concent Red Cell 17.2 H Distribution Width Platelet Count 153 Mean Platelet 12.4 H Volume Immature 0.400 Granulocytes % Neutrophils % 89.0 H Lymphocytes % 4.6 L Monocytes % 5.9 Eosinophils % 0.0 Basophils % 0.1 Nucleated Red 0.0 Blood Cells % Immature 0.030 Granulocytes # Neutrophils # 6.9 Lymphocytes # 0.4 L Monocytes # 0.5 Eosinophils # 0.0 Basophils # 0.0 Nucleated Red 0.0 Blood Cells # Lab Scanned Report REFERENCE LAB Test 11/28/18 09:45 Urine NEGATIVE Test Medications Medication Current Medications Acetaminophen (Tylenol Tab) 650 mg Q6H PRN PO MILD PAIN(1-3)OR ELEVATED TEMP; Start 11/27/18 at 12:00 Acetaminophen/ Hydrocodone Bitart ([place] (5/325)) 1 tab Q6H PRN PO PAIN LEVEL 6-10; Start 11/27/18 at 12:00 Acetaminophen/ Hydrocodone Bitart ([place] (10/325)) 1 tab Q6H PRN PO PAIN LEVEL 6-10 Last administered on 11/28/18at 09:34; Admin Dose 1 TAB; Start 11/27/18 at 12:00 Morphine Sulfate (morphine) 2 mg Q2H PRN IV BREAKTHROUGH PAIN Last administered on 11/28/18 04:22; Admin Dose 2 MG; Start 11/27/18 at 12:00 Hydromorphone HCl (Dilaudid) 0.5 mg Q6H PRN IV BREAKTHROUGH PAIN; Start 11/27/18 at 12:00 Metoclopramide HCl (Reglan) 10 mg Q6H PRN IV NAUSEA AND/OR VOMITING; Start 11/27/18 at 12:00 Diphenhydramine HCl (Benadryl) 25 mg Q6H PRN IV ITCHING; Start 11/27/18 at 12:00 Diphenhydramine HCl (Benadryl) 25 mg Q6H PRN PO ITCHING; Start 11/27/18 at 12:00 Famotidine (Pepcid) 20 mg Q12 PO Last administered on 11/28/18 08:43; Admin Dose 20 MG; Start 11/27/18 at 21:00 Lactated Ringer's 1,000 ml @ 100 mls/hr Q10H IV Last administered on 11/28/18 04:23; Admin Dose 100 MLS/HR; Start 11/27/18 at 11:40 Vancomycin HCl 250 ml @ 125 mls/hr Q24H IVPB Last administered on 11/27/18 14:31; Admin Dose 125 MLS/HR; Start 11/27/18 at 12:00 Diagnostic Test (Pha) (Accu-Chek) 1 ea 02 XX ; Start 11/28/18 at 02:00 Insulin Aspart (Novolog Insulin Pen) NOVOLOG *MILD* ALGORITHM WITH MEALS BEDTIME SC Last administered on 11/28/18 08:40; Admin Dose 2 UNIT; Start 11/27 at 17:55 Miscellaneous Information 1 ea NOTE XX ; Start 11/27/18 at 18:00 Glucose (Glutose) 15 gm Q15M PRN PO DECREASED GLUCOSE; Start 11/27/18 at 18:00 Glucose (Glutose) 22.5 gm Q15M PRN PO DECREASED GLUCOSE; Start 11/27/18 at 18:00 Dextrose (D50w Syringe) 25 ml Q15M PRN IV DECREASED GLUCOSE; Start 11/27/18 at 18:00 Dextrose (D50w Syringe) 50 ml Q15M PRN IV DECREASED GLUCOSE; Start 11/27/18 at 18:00 Glucagon (Glucagen) 1 mg Q15M PRN IM DECREASED GLUCOSE; Start 11/27/18 at 18:00 Glucose (Glutose) 15 gm Q15M PRN BUCCAL DECREASED GLUCOSE; Start 11/27/18 at 18:00 CINDI CAZARES MD Nov 28, 2018 10:07
[2018-11-28] MEDS ORDERED: LORAZEPAM 0.5 MG TAB PO PRN (10:30)
[2018-11-28] MEDS: VANCOMYCIN 1 GM (PMX) 250 ML IVPB SCH (13:08)
[2018-11-28] MEDS: SOD CHLORIDE 0.9% 1,000 ML IV SCH (13:08)
[2018-11-28 17:38] VITALS: BP 156/78; PULSE 107; RESP 18
[2018-11-28 20:00] VITALS: BP 134/75; PULSE 114; RESP 18
[2018-11-28] MEDS: INSULIN GLARGINE [LANTus] (100 UNITS/ML) SYG SC SCH (20:48)
[2018-11-29] MEDS: HYDROCODONE/APAP (10/325) TAB PO PRN ×2 (01:28→08:01)
[2018-11-29] MEDS: ACCU-CHEK XX SCH (01:39)
[2018-11-29 02:00] VITALS: BP 161/81; RESP 19
[2018-11-29 07:29] VITALS: BP 137/66; PULSE 102; RESP 19
[2018-11-29] MEDS: FAMOTIDINE 20 MG TAB PO SCH ×2 (08:01→20:47)
[2018-11-29] MEDS: INSULIN ASPART [NOVOLOG] 3 ML PEN SC SCH ×4 (09:01→20:53)
[2018-11-29] MEDS: SOD CHLORIDE 0.9% 1,000 ML IV SCH (10:30)
[2018-11-29] MEDS: HYDROCODONE/APAP (5/325) TAB PO PRN ×2 (14:13→22:20)
[2018-11-29 14:27] VITALS: BP 147/62; PULSE 82; RESP 19
--- NOTE | 2018-11-29 14:56 | PN ---
Date/Time of Note Date/Time of Note DATE: 11/29/18 TIME: 14:54 Assessment/Plan VTE Prophylaxis Risk score (from [facility])>0 risk: 4 SCD applied (from [facility]): Yes Pharmacological prophylaxis: NA/contraindicated Pharm contraindication: surgical contra Lines/Catheters IV [facility]from [facility] [place] Urinary Cath still in place: Yes Reason Cath still needed: urinary retention Assessment/Plan Hospital Course 1 left staghorn calculus status post percutaneous lithotripsy, cystoscopy, left retrograde pyelogram, insertion of left ureteral stent and a nephrostomy tube.pod# 2. History of urinary tract infections. 3. History of herpes simplex. 4. Diabetes. 5. Hyperlipidemia. 6. Hx of hysterectomy 7. Overweight 8. Anemia Assessment/Plan - Pain meds change Ultram - CT a+p showed : Interval left percutaneous nephrolithotomy with fragmentation and near complete removal of previously noted staghorn calculus. Small residual fragments in the upper pole belinda, the renal pelvis and the distal ureter. Trace left perinephric hemorrhage. -c/w VAnco -iron supplement -stop IV fluids - Shoulder Xray unremarkable - diet - c/w PT -d,c planning - CW PCNT Result Diagram: 11/29/18 1229 11/27/18 1229 Results 24hrs Laboratory Tests Test 11/28/18 17:37 11/28/18 20:44 11/29/18 01:32 11/29/18 08:29 Bedside Glucose 173 265 H 210 174 Test 11/29/18 12:29 11/29/18 12:39 White Blood Count 5.4 # Red Blood Count 3.59 L Hemoglobin 9.3 L Hematocrit 29.5 L Mean Corpuscular 82.2 Volume Mean Corpuscular 25.9 L Hemoglobin Mean Corpuscular 31.5 L Hemoglobin Concent Red Cell 16.9 H Distribution Width Platelet Count 138 L Mean Platelet Volume 11.9 H Immature 0.400 Granulocytes % Neutrophils % 78.3 H Lymphocytes % 9.7 L Monocytes % 9.9 Eosinophils % 1.3 Basophils % 0.4 Nucleated Red Blood 0.0 Cells % Immature 0.020 Granulocytes # Neutrophils # 4.2 Lymphocytes # 0.5 L Monocytes # 0.5 Eosinophils # 0.1 Basophils # 0.0 Nucleated Red Blood 0.0 Cells # Bedside Glucose 235 H Subjective 24 Hr Interval Summary Free Text/Dictation dizzy Musculoskeletal: restricted range of motion Neurologic: dizziness Exam/Review of Systems Exam Vitals Vital Signs Date Temp Pulse Resp B/P (MAP) Pulse Ox O2 O2 Flow FiO2 Time Delivery Rate 11/29/18 98.7 82 19 147/62 96 14:27 (90) 11/28/18 Nasal 2.0 20:15 Cannula Intake and Output 11/28/18 11/28/18 11/29/18 1515:00 23:00 07:00 IntakeIntake Total 1590 ml 1400 ml 480 ml OutputOutput Total 2300 ml 400 ml BalanceBalance 1590 ml -900 ml 80 ml Constitutional: alert, oriented Respiratory: clear to auscultation Cardiovascular: regular rate and rhythm Gastrointestinal: soft Genitourinary - Female: other (left side urostomy) Results Results 24hrs Laboratory Tests Test 11/28/18 17:37 11/28/18 20:44 11/29/18 01:32 11/29/18 08:29 Bedside Glucose 173 265 H 210 174 Test 11/29/18 12:29 11/29/18 12:39 White Blood Count 5.4 # Red Blood Count 3.59 L Hemoglobin 9.3 L Hematocrit 29.5 L Mean Corpuscular 82.2 Volume Mean Corpuscular 25.9 L Hemoglobin Mean Corpuscular 31.5 L Hemoglobin Concent Red Cell 16.9 H Distribution Width Platelet Count 138 L Mean Platelet Volume 11.9 H Immature 0.400 Granulocytes % Neutrophils % 78.3 H Lymphocytes % 9.7 L Monocytes % 9.9 Eosinophils % 1.3 Basophils % 0.4 Nucleated Red Blood 0.0 Cells % Immature 0.020 Granulocytes # Neutrophils # 4.2 Lymphocytes # 0.5 L Monocytes # 0.5 Eosinophils # 0.1 Basophils # 0.0 Nucleated Red Blood 0.0 Cells # Bedside Glucose 235 H Medications Medication Current Medications Acetaminophen (Tylenol Tab) 650 mg Q6H PRN PO MILD PAIN(1-3)OR ELEVATED TEMP; Start 11/27/18 at 12:00 Acetaminophen/ Hydrocodone Bitart ([place] (5/325)) 1 tab Q6H PRN PO PAIN LEVEL 6-10 Last administered on 11/29/18at 14:13; Admin Dose 1 TAB; Start 11/27/18 at 12:00 Acetaminophen/ Hydrocodone Bitart ([place] ()) 1 tab Q6H PRN PO PAIN LEVEL 6-10 Last administered on 11/29/18at 08:01; Admin Dose 1 TAB; Start 11/27/18 at 12:00 Morphine Sulfate (morphine) 2 mg Q2H PRN IV BREAKTHROUGH PAIN Last administered on 11/28/18at 20:40; Admin Dose 2 MG; Start 11/27/18 at 12:00 Hydromorphone HCl (Dilaudid) 0.5 mg Q6H PRN IV BREAKTHROUGH PAIN; Start 11/27/18 at 12:00 Metoclopramide HCl (Reglan) 10 mg Q6H PRN IV NAUSEA AND/OR VOMITING Last ad ministered on 11/28/18at 20:56; Admin Dose 10 MG; Start 11/27/18 at 12:00 Diphenhydramine HCl (Benadryl) 25 mg Q6H PRN IV ITCHING; Start 11/27/18 at 12:00 Diphenhydramine HCl (Benadryl) 25 mg Q6H PRN PO ITCHING; Start 11/27/18 at 12:00 Famotidine (Pepcid) 20 mg Q12 PO Last administered on 11/29/18at 08:01; Admin Dose 20 MG; Start 11/27/18 at 21:00 Diagnostic Test (Pha) (Accu-Chek) 1 ea 02 XX ; Start 11/28/18 at 02:00 Insulin Aspart (Novolog Insulin Pen) NOVOLOG *MILD* ALGORITHM WITH MEALS BEDT [place] SC Last administered on 11/29/18at 12:53; Admin Dose 3 UNIT; Start 11/27/18 at 17:55 Miscellaneous Information 1 ea NOTE XX ; Start 11/27/18 at 18:00 Glucose (Glutose) 15 gm Q15M PRN PO DECREASED GLUCOSE; Start 11/27/18 at 18:00 Glucose (Glutose) 22.5 gm Q15M PRN PO DECREASED GLUCOSE; Start 11/27/18 at 18:00 Dextrose (D50w Syringe) 25 ml Q15M PRN IV DECREASED GLUCOSE; Start 11/27/18 at 18:00 Dextrose (D50w Syringe) 50 ml Q15M PRN IV DECREASED GLUCOSE; Start 11/27/18 at 18:00 Glucagon (Glucagen) 1 mg Q15M PRN IM DECREASED GLUCOSE; Start 11/27/18 at 18:00 Glucose (Glutose) 15 gm Q15M PRN BUCCAL DECREASED GLUCOSE; Start 11/27/18 at 18:00 Sodium Chloride 1,000 ml @ 40 mls/hr Q24H IV Last administered on 11/28/18at 13:08; Admin Dose 40 MLS/HR; Start 11/28/18 at 10:30 Lorazepam (Ativan) 0.5 mg Q8H PRN PO ANXIETY; Start 11/28/18 at 10:30 Insulin Glargine (Lantus) 5 units DAILY@2000 SC Last administered on 11/28/18at 20:48; Admin Dose 5 UNITS; Start 11/28/18 at 20:00 ISRRAEL STROUD Nov 29, 2018 14:56
[2018-11-29] MEDS ORDERED: traMADol 50 MG TAB PO PRN (15:00)
[2018-11-29] MEDS ORDERED: DOCUSATE SODIUM 100 MG CAP PO PRN (16:00)
[2018-11-29] MEDS ORDERED: POLYETHYLENE GLYCOL 17 GM PACKET PO PRN (16:00)
[2018-11-29] MEDS ORDERED: BISACODYL 10 MG SUPP PR ONE (16:00)
[2018-11-29 19:20] VITALS: BP 118/74; PULSE 109; RESP 18
[2018-11-29] MEDS: FERROUS SULFATE (EC) 325 MG TAB PO SCH (20:47)
[2018-11-29] MEDS: INSULIN GLARGINE [LANTus] (100 UNITS/ML) SYG SC SCH (20:52)
[2018-11-30 01:55] VITALS: BP 123/72; PULSE 97; RESP 18
[2018-11-30] MEDS: ACCU-CHEK XX SCH (02:00)
[2018-11-30] MEDS: HYDROCODONE/APAP (5/325) TAB PO PRN ×2 (04:22→11:16)
[2018-11-30 07:27] VITALS: BP 121/80; PULSE 89; RESP 16
[2018-11-30] MEDS: INSULIN ASPART [NOVOLOG] 3 ML PEN SC SCH ×2 (07:58→12:27)
[2018-11-30] MEDS: FERROUS SULFATE (EC) 325 MG TAB PO SCH (09:01)
[2018-11-30] MEDS: FAMOTIDINE 20 MG TAB PO SCH (09:01)
--- NOTE | 2018-11-30 09:24 | PDOCDIS ---
Discharge Instructions DIAGNOSIS Discharge Diagnosis Staghorn stone CONDITION [id number] Patient Condition: [id number] Good HOME CARE INSTRUCTIONS: Richard Diet Instructions: Paula ACTIVITY: Richard Activity Restrictions: [id number] Avoid heavy lifting [id number] Bathing Restrictions: [id number] Shower FOLLOW UP/APPOINTMENTS Follow-up Plan Call office on Sunday Morning to make follow up appointment REFERRALS Richard Referring Provider: ROSETTE Contreras OTHER ORDERS: Other Orders: please have patient evaluated today for a walker to go home with SCHOOL/WORK RELEASE May return to School/Work on: Dec 11, 2018 ROSETTE FRIAS Nov 30, 2018 09:24
[2018-11-30] MEDS ORDERED: POTASSIUM CHLORIDE (SR) 10 MEQ TAB PO ONE (14:00)
[2018-11-30] MEDS ORDERED: FER325 PO (14:13)
--- NOTE | 2018-11-30 14:15 | DS ---
Date/Time of Note Date/Time of Note DATE: 11/30/18 TIME: 14:14 Discharge Summary Admission/Discharge Info Admit Date/Time Nov 27, 2018 at 11:40 Discharge Date/Time Discharge Diagnosis Staghorn stone Consults Dr rogers, urology Procedures percutaneous lithotripsy, cystoscopy, left retrograde pyelogram, insertion of left ureteral stent and a nephrostomy tube by dr Rogers Hospital Course his is a 48-year-old female with a past medical history of diabetes, left flank pain, history of multiple pyelonephritis in the past, left staghorn calculus, was admitted electively by Dr. Rogers for left percutaneous lithotripsy, cystoscopy and left retrograde pyelogram. The patient is status post left percutaneous lithotripsy, cystogram, left retrograde pyelogram, insertion of left ureteral stent and nephrostomy tube. Currently, patient is in lot of pain as being controlled with pain medications. The stone was 8 cm x 3 cm. The patient denied any fever or chills. On admission, vital signs are blood pressure 153/87, heart rate 84, respirations 18, saturating 93%. Labs showed white count 6.7, hemoglobin 11.3. BMP within normal limits. PAST MEDICAL HISTORY: 1. Diabetes. 2. History of herpes simplex infection. 3. Hypercholesterolemia. 4. Horseshoe kidney with left staghorn calculus, pancreatic cystic lesion. 5. Fatty liver. Impressions: 1. left staghorn calculus status post percutaneous lithotripsy, cystoscopy, left retrograde pyelogram, insertion of left ureteral stent and a nephrostomy tube by dr Rogers. 2. History of urinary tract infections. 3. History of herpes simplex. 4. Diabetes. 5. Hyperlipidemia. 6. Hx of hysterectomy 7. Overweight 8. Anemia Patient was admitted to med/surg unit. The patient was under pain control. The patient was on IV vancomycin. The patient is also receiving Ringer's lactate while NPO. The output from the nephrostomy tube was adequate. Pt exhibits some mild anemia and we started her on iron supplements. Pt is ambulating with FWW and was d/c by dr Rogers. Home Meds Active Scripts Ferrous Sulfate* (Ferrous Sulfate*) 325 Mg Tabec, 325 MG PO BID for 30 Days, TAB Prov:ISRRAEL STROUD 11/30/18 Reported Medications Amoxicillin/Potassium Clav (Amox-Clav 500-125 mg Tablet) 500-125 mg Tab, 1 TAB PO BID for 20 Days, TAB 11/27/18 Acyclovir* (Acyclovir*) 400 Mg Tablet, 400 MG PO DAILY, TAB 11/27/18 Loratadine* (Loratadine*) 10 Mg Tablet, 10 MG PO DAILY, #30 TAB 11/27/18 Hydroxyzine Hcl* (Hydroxyzine Hcl*) 10 Mg Tablet, 10 MG PO QHS PRN for ITCHING, #30 TAB 11/27/18 Metformin Hcl* (Metformin Hcl*) 500 Mg Tablet, 500 MG PO WITH BREAKFAST DINNE, #60 TAB 11/27/18 Discontinued Reported Medications Hydroxyzine Hcl* (Hydroxyzine Hcl*) 25 Mg Tablet, 25 MG PO QHS PRN for ITCHING, #30 TAB 03/29/18 Metformin Hcl* (Metformin Hcl*) 500 Mg Tablet, 500 MG PO WITH BREAKFAST DINNE, #30 TAB 03/29/18 Discontinued Scripts Levofloxacin* (Levofloxacin*) 500 Mg Tablet, 500 MG PO DAILY for 7 Days, TAB Prov:ISRRAEL STROUD 10/18/18 Pantoprazole* (Pantoprazole*) 40 Mg Tablet., 40 MG PO DAILY@06 for 30 Days Prov:ASHANTI CORONEL MD 04/04/18 Follow-up Plan Call office on Sunday Morning to make follow up appointment PCP 1 week Primary Care Provider Not On Staff Doctor Time spent on discharge: < 30 minutes Pending Labs Laboratory Tests Test 11/29/18 17:44 11/29/18 20:45 11/30/18 01:29 11/30/18 04:40 Bedside 182 223 194 Glucose mg/dL (70-220) mg/dL (70-220) mg/dL (70-220) White Blood 5.1 Count 10^3/ul (4.8-1 0.8) Red Blood 3.93 Count 10^6/ul (4.20- 5.40) Hemoglobin 10.2 g/dl (12.0-16. 0) Hematocrit 32.2 % (37.0-47.0) Mean 81.9 Corpuscular fl (82.0-101.0 Volume ) Mean 26.0 Corpuscular pg (29.0-33.0) Hemoglobin Mean 31.7 Corpuscular g/dl (32.0-37. Hemoglobin Conc 0) ent Red Cell 16.6 Distribution % (11.5-14.5) Width Platelet Count 165 10^3/UL (140-4 15) Mean Platelet 11.7 Volume fl (7.4-10.4) Immature 0.200 Granulocytes % % (0.001-0.429 ) Neutrophils % 67.9 % (39.0-77.0) Lymphocytes % 17.2 % (15.0-51.0) Monocytes % 10.2 % (0.0-11.0) Eosinophils % 4.1 % (0.0-7.0) Basophils % 0.4 % (0.0-2.0) Nucleated Red 0.0 Blood Cells % /100WBC (0.0-0 .0) Immature 0.010 Granulocytes # 10^3/ul (0.0-0 .031) Neutrophils # 3.5 10^3/ul (1.6-7 .5) Lymphocytes # 0.9 10^3/ul (0.8-2 .9) Monocytes # 0.5 10^3/ul (0.3-0 .9) Eosinophils # 0.2 10^3/ul (0.0-0 .5) Basophils # 0.0 10^3/ul (0.0-0 .1) Nucleated Red 0.0 Blood Cells # 10^3/ul (0.0-0 .0) Sodium Level 138 mmol/L (135-14 4) Potassium 3.4 Level mmol/L (3.5-5. 1) Chloride Level 102 mmol/L (97-110 ) Carbon Dioxide 28 Level mmol/L (21-31) Anion Gap 8 (5-13) Blood Urea 8 mg/dl (7-20) Nitrogen Creatinine 0.68 mg/dl (0.44-1. 00) Est Glomerular > 60 Filtrat mL/min (>60) Rate mL/min Glucose Level 159 mg/dl (70-220) Calcium Level 10.2 mg/dl (8.4-10. 2) Test 11/30/18 07:55 11/30/18 12:25 Bedside 164 179 Glucose mg/dL (70-220) mg/dL (70-220) ISRRAEL STROUD Nov 30, 2018 14:15
--- NOTE | 2018-11-30 20:38 | DS ---
DATE OF ADMISSION: 11/27/2018 DATE OF DISCHARGE: 11/30/2018 HISTORY: Danyell Mccallum is a 48-year-old female status post first stage left percutaneous nephrolith otripsy which was uneventful. Today, the patient's vital signs are stable. She is afebrile. She is tolerating oral food well. She is voiding clear yellow urine and having normal bowel movements. Th ere is no nausea or vomiting. Her pain is well controlled on [place] 5/325 one tab p.o. q.6-[address] scan demonstrated several fragments of stone within the kidney and the left nep hrostomy tube to be in proper anatomical position. PHYSICAL EXAMINATION: LUNGS: Good breath sounds bilaterally. HEART: Regular rate and rhythm. ABDOMEN: Soft, nondistended, nontender, no palpable masses, positive bowel sounds. Flank nephrostom y tube on the left side is clean, dry and intact. There is no erythema or bleeding around the nephro stomy tube and nephrostomy tube is draining clear yellow urine. LABORATORY DATA: White blood count 5.1, hemoglobin 10.2, creatinine 0.68. Doing well status post left percutaneous nephrolithotripsy. The patient states she would like to hav e a walker when she goes home today so as to help her in ambulation. IMPRESSION: 1. Diabetes. 2. Urinary tract infection. 3. Staghorn calculi. PLAN: Discharge to home with left nephrostomy tube to gravity drainage. Continue loratadine 10 mg p .o. daily. Acyclovir 400 mg p.o. daily. Hold Augmentin. Prescription written for [place] 5/325 one t ab p.o. q.6 hours p.r.n., dispense #30 with no refill. Continue metformin 500 mg p.o. daily. My off ice staff will contact the patient on Sunday morning to make a followup appointment this coming week. All questions have been answered. Dictated By: ROSETTE CASAS/NTS Conf#: [id number] DID#: [id number]
== END 2018-11-30 17:00 | disposition home health service (06) ==
LOC: SDS 06:09 → REC 11:40 → MS1 12:48
PROVIDERS: ADMIT Urology; ATTEND Urology
DX: N20.0 Calculus of kidney (principal); E11.9 Type 2 diabetes mellitus without complications; N39.0 Urinary tract infection, site not specified; E78.5 Hyperlipidemia, unspecified; E66.3 Overweight; Z68.28 Body mass index [BMI] 28.0-28.9, adult; D64.9 Anemia, unspecified; B00.9 Herpesviral infection, unspecified; Z79.84 Long term (current) use of oral hypoglycemic drugs
CPT/HCPCS: 50081; 52005; 71046; 73030; 74176; 74430; 80048; 82962; 84703; 85025; 86850; 86900; 86901; 88300; 97110; 97116; 97161; 97530; J1100; J1815; J2250; J2270; J2405; J2710; J2765; J3010; J3370; J7030; J7120; Q9967; Z7500; Z7512; Z7610; G0378

== ENCOUNTER → 2018-12-09 | Outpatient (CLI) | payer OTHER ==
[~2018-12-09] MED LIST changes: +ACYC400T2 PO; +FER325 PO; +HYDR-3029 PO; -HYDR-843 PO; +IOHEXOL 300MG/ML 30 ML BTL ONE; -LEVO500T10 PO; +LORA10TA3 PO; -PANT40TA4 PO
== END | disposition home or self-care (01) ==
LOC: RAD 10:45
PROVIDERS: ATTEND Urology
DX: N20.0 Calculus of kidney (principal)
CPT/HCPCS: 74425; 74475; Q9967

== ENCOUNTER 2018-12-25 06:34 | Day surgery (SDC) | payer BC, OTHER ==
[2018-12-25] VITALS (20 sets, daily range): BP systolic 111–180; BP diastolic 60–92; PULSE 62–123; RESP 17–24; Ht 152.4 cm; Wt 78.5 kg
[~2018-12-25] VITALS: Ht 152.4 cm; Wt 78.5 kg
[~2018-12-25 06:34] MED LIST changes: -IOHEXOL 300MG/ML 30 ML BTL ONE
[2018-12-25] MEDS ORDERED: FER325 PO (06:44)
[2018-12-25] MEDS ORDERED: HYDR-4011 PO (06:45)
[2018-12-25] MEDS ORDERED: METF500T24 PO (06:45)
[2018-12-25] MEDS ORDERED: LIDOCAINE 1% (MPF) 30 ML INJ ONE (07:03)
[2018-12-25] MEDS ORDERED: IOHEXOL 300MG/ML 30 ML BTL ONE (07:04)
[2018-12-25] MEDS ORDERED: HEPARIN 1000 UNITS/ML 10 ML INJ ONE (07:04)
--- NOTE | 2018-12-25 07:35 | PREAC ---
Date/Time of Note Date/Time of Note DATE: 12/25/18 TIME: 07:31 Anesthesia Eval and Record Evaluation Time Pre-Procedure Interview DATE: 12/25/18 TIME: 07:31 Age 48 Sex female NPO: 8 hrs Preoperative diagnosis nephrostomy tube Planned procedure change of nephrostomy tube/ lithotropsy Past Medical History Past Medical History: Includes Endo: Diabetes Surgery & Anesthesia Issues No known issue Meds Anticoagulation: No Beta Yovana within 24 hr: No Reason Beta Yovana not given: Pt. not on B-Yovana Reported Medications Hydrocodone/Acetaminophen ([place] 5-325 Tablet) 1 Each Tablet, 1 EACH PO Q6 PRN for PAIN, TAB 12/25/18 Metformin Hcl* (Metformin Hcl*) 500 Mg Tablet, 500 MG PO WITH BREAKFAST DINNE, #60 TAB 12/25/18 Ferrous Sulfate* (Ferrous Sulfate*) 325 Mg Tabec, 325 MG PO BID, TAB 12/25/18 Discontinued Reported Medications Acyclovir* (Acyclovir*) 400 Mg Tablet, 400 MG PO DAILY, TAB 11/27/18 Loratadine* (Loratadine*) 10 Mg Tablet, 10 MG PO DAILY, #30 TAB 11/27/18 Hydroxyzine Hcl* (Hydroxyzine Hcl*) 10 Mg Tablet, 10 MG PO QHS PRN for ITCHING, #30 TAB 11/27/18 Metformin Hcl* (Metformin Hcl*) 500 Mg Tablet, 500 MG PO WITH BREAKFAST DINNE, #60 TAB 11/27/18 Discontinued Scripts Ferrous Sulfate* (Ferrous Sulfate*) 325 Mg Tabec, 325 MG PO BID for 30 Days, TAB Prov:ISRRAEL STROUD 11/30/18 Current Medications Ciprofloxacin/ Dextrose 200 ml @ 200 mls/hr PRE-OP IVPB ; Start 12/25/18 at 09:00; Stop 12/25/18 at 19:00 Meds reviewed: Yes Allergies Coded Allergies: No Known Allergies (Verified Allergy, Unknown, 12/25/18) Allergies Reviewed: Yes Labs/Studies Labs Reviewed: Reviewed by anesthesiologist test: N/A Pre-procedure Exam Airway: Adequate mouth opening, Adequate thyromental dist Mallampati: Mallampati IV Teeth: Normal Lung: Normal Heart: Normal ASA Physical Status ASA physical status: 2 Emergency: None Pre-operative Attestations Prior to commencing anesthesia and surgery, the patient was re-evaluated, there was verification of: *The patient's identity *The results of appropriate recent lab work and preoperative vital signs *The above evaluation not changing prior to induction *Anesthetic plan, risk benefits, alternative and complications discussed with patient/family; questions answered; patient/family understands, accepts and wishes to proceed. CASH RAMIREZ DO Dec 25, 2018 07:35
--- NOTE | 2018-12-25 07:40 | HPN ---
Date/Time of Note Date/Time of Note DATE: 12/25/18 TIME: 07:40 Interval H&P Admission Note Pt. seen H&P reviewed: No system changes ROSETTE FRIAS Dec 25, 2018 07:40
[2018-12-25] MEDS ORDERED: MIDAZOLAM 1 MG/ML 2 ML INJ ONE (07:49)
[2018-12-25] MEDS ORDERED: LIDOCAINE 1% (MDV) 20 ML INJ ONE (07:49)
[2018-12-25] MEDS ORDERED: PROPOFOL 20 ML ONE (07:49)
[2018-12-25] MEDS ORDERED: ROCURONIUM 50 MG INJ ONE (07:49)
[2018-12-25] MEDS ORDERED: HYDROmorphONE 1 MG/5 ML IV SYRINGE IV PRN ×2 (08:00)
[2018-12-25] MEDS ORDERED: MEPERIDINE 25 MG INJ IV PRN (08:00)
[2018-12-25] MEDS ORDERED: LABETALOL HCL 20MG INJ IV PRN (08:00)
[2018-12-25] MEDS ORDERED: CIPROFLOXACIN 400MG/D5W 200 ML ONE (08:07)
[2018-12-25] MEDS ORDERED: FAMOTIDINE 20 MG INJ ONE (08:25)
[2018-12-25] MEDS ORDERED: METOCLOPRAMIDE 10 MG INJ ONE (08:25)
[2018-12-25] MEDS ORDERED: ONDANSETRON 4 MG INJ ONE (08:25)
[2018-12-25] MEDS ORDERED: CIPROFLOXACIN 400MG/D5W 200 ML IVPB SCH (09:00)
[2018-12-25] MEDS ORDERED: KETOROLAC 30 MG INJ ONE (09:58)
[2018-12-25] MEDS ORDERED: KETAMINE (50 MG/ML) 10 ML VIAL ONE (09:59)
--- NOTE | 2018-12-25 10:31 | PAC ---
Date/Time of Note Date/Time of Note DATE: 12/25/18 TIME: 10:30 Post-Anesthesia Notes Post-Anesthesia Note Last documented vital signs 150/69 85 100% 98 14 Activity: WNL Respiratory function: WNL Cardiovascular function: WNL Mental status: Baseline Pain reasonably controlled: Yes Hydration appropriate: Yes Nausea/Vomiting absent: Yes CASH RAMIREZ DO Dec 25, 2018 10:31
[2018-12-25] MEDS: ONDANSETRON 4 MG INJ IV PRN ×2 (10:45→11:39)
[2018-12-25] MEDS: hydrALAzine 20 MG INJ IV PRN ×2 (10:46→11:11)
--- NOTE | 2018-12-25 11:02 | PDOCDIS ---
Discharge Instructions DIAGNOSIS Discharge Diagnosis Staghorn calculi CONDITION [id number] Patient Condition: [id number] Good HOME CARE INSTRUCTIONS: Richard Diet Instructions: Paula Regular ACTIVITY: Richard Activity Restrictions: [id number] Slowly Increase Activity [id number] Bathing Restrictions: [id number] Shower FOLLOW UP/APPOINTMENTS Follow-up Plan Call office for follow up office visit next week REFERRALS Richard Referring Provider: ROSETTE Contreras Other Referrals none OTHER ORDERS: Other Orders: Nephrostomy tube to gravity drainage- leg bag ROSETTE FRIAS Dec 25, 2018 11:02
--- NOTE | 2018-12-25 11:05 | OPR ---
Date/Time of Note Date/Time of Note DATE: 12/25/18 TIME: 11:03 Operative Report Preoperative Diagnosis Left staghorn calculi Postoperative Diagnosis same Operation/Procedure Performed Removal of left NT, nephrostogram, left PCNL with endoscopc holmium laser lithotripsy, insertion NT and ureteral stent Surgeon Nguyen Sears Anesthesia Type: general Estimated Blood Loss: none Transfusion none Specimen stone Grafts/Implants none Tubes/Drains 7 f urteral stent and 20 f NT Complications none Pt Condition Post Procedure: critical Disposition: PACU Indications stone Procedure Description dict [id number] ROSETTE FRIAS Dec 25, 2018 11:05
[2018-12-25] MEDS ORDERED: morphine 4 MG/ML VIAL IV STA (12:59)
[2018-12-25] MEDS ORDERED: METOPROLOL 5 MG INJ IV ONE (13:00)
--- NOTE | 2018-12-25 13:10 | OPR ---
DATE OF OPERATION: PREOPERATIVE DIAGNOSES: 1. Left staghorn calculi. 2. Horseshoe kidney. POSTOPERATIVE DIAGNOSES: 1. Left staghorn calculi. 2. Horseshoe kidney. OPERATION PERFORMED: Removal of left nephrostomy tube, left nephrostogram, left percutaneous nephrol ithotripsy with CyberWand endoscopic holmium laser lithotripsy, flexible nephroscopy. SURGEON: Rosette Frias MD INTERNAL SALES ENGINEER: Bay Sears MD/interventional radiology. ANESTHESIA: General. COMPLICATIONS: None. FINDINGS: Staghorn calculi remnants and horseshoe kidney. DRAINS: A 7-Tongan double-J ureteral stent 20-Tongan nephrostomy tube. ESTIMATED BLOOD LOSS: Negligible. SPECIMEN: Stone. DESCRIPTION OF PROCEDURE: The patient was brought into the operating room and placed on the operatin g table in the supine position. She was prepped and draped in usual fashion after anesthesia was ind uced. A 2-way Sar[place] catheter was inserted. She was then repositioned back onto the stretcher and th en replaced back onto the operating room table in the prone position. Appropriate pressure points we re padded. She received preoperative antibiotic therapy. Sequential compression devices were applie d. Fluoroscopy demonstrated stone burden in the lower pole of the kidney. No other radiodense stone burden could be appreciated. The previously placed nephrostomy tube/ureteral stent was noted to be in proper anatomical position. Contrast was instilled into the tube which demonstrated the tube to b e in the collecting system. Stone burden was noted in the lower pole. No extravasation was apprecia celine. The nephrostomy tube was removed and then an access sheath was inserted under the care of Dr. Orlin toscano, who will dictate the procedure separately. Prior to the above, 2 wires were inserted into the c ollecting system and down into the bladder and confirmed with fluoroscopy. After Dr. Sears placed a 2 8-Tongan access sheath, rigid nephroscopy was performed with the rigid nephroscope which then allowed for laser lithotripsy utilizing the CyberWand. The nephroscope was easily inserted into the renal p galilea and attention was first drawn to the renal pelvis right at the juncture of the renal pelvis and the ureter, a stone was identified. CyberWand was utilized on today. Under direct vision, the lionel l pelvic stone was fragmented and removed with suction. Attention was then drawn to the lower pole w here stone burden was initially identified and cleared out under direct vision. The portion of the s tone that was growing into the renal pelvis was later both to be accessed with the rigid nephroscope. The most distal aspect of the stone was not able to be accessed and utilizing the alligator grasper s, the stone was placed into the graspers and brought to the level of the infundibulum of the lower p ole where endoscopic lithotripsy was then undertaken with the CyberWand. Complete fragmentation of t he stone was noted. The nephroscope was then moved into the middle pole where additional stone burde n was appreciated and removed as well as in the upper pole. The nephroscope was only able to get to the mid portion of the mid and upper pole and thus to remove the remaining portion of the stone burde n, the flexible cystoscope was inserted through the tract and into the appropriate infundibulum. Add itional stone burden was identified and utilizing a 365 micron holmium fiber. A total of 371 pulses were utilized with an energy setting of 0.6 joules and madrigal of 3.6. A total joules of 222 joules we re utilized today under direct vision. At this juncture, no stone burden could be appreciated in the upper, mid or lower pole calyces. No active bleeding could be appreciated. Dr. Sears then came back into the operating room and placed antegrade double-J ureteral stent and a secondary nephrostomy tub e with a 20-Tongan Councill catheter. The Councill catheter was sutured to the skin and left to grav ity drainage. The efflux of urine was noted to be light pink. She tolerated the procedure well and will be discharged home on [place] 5/325 one tab p.o. q.6 hours p.r.n., dispensed #30, no refill. She will be discharged home later today and then follow up for an outpatient nephrostogram, removal of ne phrostomy tube and cystoscopy, stent removal. The importance of time of removal of her stent, less t young 3 months to avoid encrustation and complications has been additionally stressed with the patient once again today. Dictated By: ROSETTE FRIAS MD EGR/NTS Conf#: [id number] DID#: [id number]
--- NOTE | 2018-12-25 16:03 | RADRPT ---
Vent Rate: 118 bpm RR Interval: 0 msec SC Interval: 156 msec QRS Duration: 92 msec QT Interval: 352 msec QTC Interval: 493 msec P-R-T Zephyr: 80 - 81 - 30 degrees Sinus tachycardia Cannot rule out Inferior infarct , age undetermined Abnormal ECG Electronically Signed By: J Carlos Bazan
== END 2018-12-25 16:10 | disposition home or self-care (01) ==
LOC: SDS 06:34
PROVIDERS: ATTEND Urology
DX: N20.0 Calculus of kidney (principal); E11.9 Type 2 diabetes mellitus without complications; Z79.84 Long term (current) use of oral hypoglycemic drugs
CPT/HCPCS: 50081; 74425; 74475; 82962; 84484; 84703; 88300; 93005; J0360; J0744; J1885; J2250; J2270; J2405; J2765; J3010; Q9967; Z7512; Z7610; J1644

== ENCOUNTER 2019-01-08 00:14 | Emergency (ER) | payer OTHER ==
[~2019-01-08] VITALS: Ht 167.6 cm; Wt 78.8 kg
[~2019-01-08 00:14] MED LIST changes: -ACYC400T2 PO; -HYDR-3029 PO; +HYDR-4011 PO; -LORA10TA3 PO
[2019-01-08 00:41] VITALS: Ht 167.6 cm; Wt 78.8 kg
[2019-01-08] MEDS ORDERED: CEFTRIAXONE 1 GM/50 ML (PMX) 50 ML IVPB ONE (04:00)
--- NOTE | 2019-01-08 04:26 | ERD ---
ER Documentation Chief Complaint Chief Complaint DYSURIA HPI This is a 48-year-old female with a past medical history of diabetes, horseshoe kidney, persistent nephrolithiasis status post left percutaneous nephrolithotripsy and nephrostomy tube placement who is now presenting with 3-4 days of burning dysuria, urinary urgency and frequency with associated left- sided flank pain around the nephrostomy tube. The patient does not endorse fevers, but she does believe she has had intermittent chills. She does have [place] at home, but it is not helping her discomfort. The patient does not endorse any nausea or vomiting. She does not endorse any changes to bowel movements. She denies constipation or diarrhea. She denies any black or bloody or tarry stools. The patient has had no headache or vision changes. The patient does not endorse neck or back pain. The patient denies lightheadedness or dizziness. The patient has had no chest pain or trouble breathing. The patient has had no focal deficits. The patient has had no weakness or numbness or tingling to the face or extremities. ROS All systems reviewed and are negative except as per history of present illness. Medications Home Meds Active Scripts Ciprofloxacin Hcl* (Ciprofloxacin Hcl*) 500 Mg Tablet, 500 MG PO BID for 10 Days, TAB Prov:MILAD MEJIA MD 01/08/19 Reported Medications Hydrocodone/Acetaminophen (Putney 5-325 Tablet) 1 Each Tablet, 1 EACH PO Q6 PRN for PAIN, TAB 12/25/18 Metformin Hcl* (Metformin Hcl*) 500 Mg Tablet, 500 MG PO WITH BREAKFAST DINNE, #60 TAB 12/25/18 Ferrous Sulfate* (Ferrous Sulfate*) 325 Mg Tabec, 325 MG PO BID, TAB 12/25/18 Allergies Allergies: Coded Allergies: No Known Allergies (Verified Allergy, Unknown, 12/25/18) PMhx/Soc History of Surgery: Yes (2 , OVARIAN CYSTS, NEHROSTOMY) Anesthesia Reaction: Yes (SOB,"warm feeling") Hx Neurological Disorder: No Hx Respiratory Disorders: No Hx Cardiac Disorders: No Hx Psychiatric Problems: No Hx Miscellaneous Medical Probl: Yes (kidney stones) Hx Alcohol Use: No Hx Substance Use: No Hx Tobacco Use: No Smoking Status: Never smoker FmHx Family History: diabetes Physical Exam Vitals Vital Signs Date Temp Pulse Resp B/P (MAP) Pulse Ox O2 O2 Flow FiO2 Time Delivery Rate 01/08/19 98.6 66 16 175/80 98 00:41 (111) Physical Exam Const: No apparent distress, well-developed, well-nourished Head: Normocephalic, Atraumatic Eyes: Normal Conjunctiva. Extraocular movements intact. Pupils equal, round and reactive to light ENT: Normal External Ears, Nose and Mouth. Neck: Full range of motion. No meningismus. Resp: Clear to auscultation bilaterally, No wheezes, rales or rhonchi Cardio: Regular rate and rhythm. No murmurs, rubs or gallops Abd: Soft, non tender, non distended. Normal bowel sounds Skin: No petechiae or rashes Back: No midline tenderness. Left CVA tenderness with a nephrostomy tube in place. There is no erythema or induration or purulence around the site of the nephrostomy tube. Ext: No cyanosis, or edema Neur: Awake and alert, oriented 4. Cranial nerves intact. No facial droop. Normal strength, sensation and coordination. Psych: Normal Mood and Affect Result Diagram: 01/08/19 0242 01/08/19 0242 Results 24 hrs Laboratory Tests Test 01/08/19 02:26 01/08/19 02:42 Bedside Urine pH (LAB) 6.0 Bedside Urine Protein (LAB) 2+ Bedside Urine Glucose (UA) 0.1% Bedside Urine Ketones (LAB) Negative Bedside Urine Blood 3+ Bedside Urine Nitrite (LAB) Positive Bedside Urine Leukocyte Esterase (L 1+ White Blood Count 6.4 10^3/ul Red Blood Count 4.39 10^6/ul Hemoglobin 11.9 g/dl Hematocrit 37.4 % Mean Corpuscular Volume 85.2 fl Mean Corpuscular Hemoglobin 27.1 pg Mean Corpuscular Hemoglobin Concent 31.8 g/dl Red Cell Distribution Width 14.9 % Platelet Count 305 10^3/UL Mean Platelet Volume 10.5 fl Immature Granulocytes % 0.600 % Neutrophils % 67.6 % Lymphocytes % 17.6 % Monocytes % 8.4 % Eosinophils % 5.3 % Basophils % 0.5 % Nucleated Red Blood Cells % 0.0 /100WBC Immature Granulocytes # 0.040 10^3/ul Neutrophils # 4.4 10^3/ul Lymphocytes # 1.1 10^3/ul Monocytes # 0.5 10^3/ul Eosinophils # 0.3 10^3/ul Basophils # 0.0 10^3/ul Nucleated Red Blood Cells # 0.0 10^3/ul Urine Color YELLOW Urine Clarity CLOUDY Urine pH 6.0 Urine Specific [place] 1.017 Urine Ketones NEGATIVE mg/dL Urine Nitrite POSITIVE mg/dL Urine Bilirubin NEGATIVE mg/dL Urine Urobilinogen NEGATIVE mg/dL Urine Leukocyte Esterase 2+ Dulce/ul Urine Microscopic RBC > 182 /HPF Urine Microscopic WBC > 182 /HPF Urine Squamous Epithelial Cells FEW /HPF Urine Bacteria MANY /HPF Urine Mucus FEW /HPF Urine Hemoglobin 3+ mg/dL Urine Glucose 2+ mg/dL Urine Total Protein 2+ mg/dl Sodium Level 142 mmol/L Potassium Level 4.1 mmol/L Chloride Level 105 mmol/L Carbon Dioxide Level 29 mmol/L Anion Gap 8 Blood Urea Nitrogen 17 mg/dl Creatinine 0.82 mg/dl Est Glomerular Filtrat Rate mL/min > 60 mL/min Glucose Level 171 mg/dl Calcium Level 10.8 mg/dl Total Bilirubin 0.1 mg/dl Direct Bilirubin 0.00 mg/dl Indirect Bilirubin 0.1 mg/dl Aspartate Amino Transf (AST/SGOT) 15 IU/L Alanine Aminotransferase (ALT/SGPT) 28 IU/L Alkaline Phosphatase 156 IU/L Total Protein 7.7 g/dl Albumin 4.0 g/dl Globulin 3.70 g/dl Albumin/Globulin Ratio 1.08 Lipase 118 U/L Current Medications Medications Dose Sig/Earnest Start Time Status Last (Trade) Ordered Route PRN Stop Time Admin Dose Reason Admin Ceftriaxone 50 ml @ ONCE ONCE 01/08/19 DC 01/08/19 Sodium 100 mls/hr IVPB 04:00 03:59 01/08/19 04:29 Procedures/MDM MDM The patient's presentation warrants further investigation. Previous medical records, if available, were reviewed. LABS The patient's laboratory testing was obtained and reviewed. No emergent treatment was required unless described below. CBC: No E/o systemic infection or thrombocytopenia. Mild normocytic anemia, nonemergent. Chemistry: No E/o severe acidosis or alkalosis or renal failure or liver disease or diabetic ketoacidosis Lipase: No E/o pancreatitis Urine: E/o acute infection or hematuria IMAGING Imaging and Radiology interpretation reviewed. US LUQ FINDINGS: The patient has a horseshoe kidney demonstrated on the CT scan of the abdomen pelvis 11/28/2018. The right and left moieties are normal in size with the right measuring 9.46 cm and the left measuring 11.36 cm maximal dimensions. The renal parenchymal echogenicity is normal without intra renal masses. No calculi are demonstrated. A left drainage tube is seen within the left renal collecting system. No evidence of hydronephrosis bilaterally. Urinary bladder is contracted with a Sarabia catheter present. IMPRESSION: 1. Horseshoe kidney demonstrated on CT abdomen pelvis 11/28/2018. 2. Drainage catheter extending into the left renal collecting system. 3. Normal size right and left renal moieties without hydronephrosis or calculi demonstrated. No intra renal masses. 4. Sarabia catheter within a contracted urinary bladder. Electronically viewed and signed by Physician Ellie on 01/08/2019 05:08 Left Nephrostogram PENDING TREATMENT/DISPOSITION The patient presents with symptoms most concerning for a urinary tract infection. The patient also has left flank pain with a nephrostomy tube in place related to frequent kidney stones and a staghorn calculus within her horseshoe kidney. The patient is afebrile and her renal function is unremarkable. The patient's ultrasound does not reveal any evidence concerning for hydronephrosis. The patient was given a dose of Rocephin in the emergency department. I was able to speak with the patient's urologist, Dr. Cedillo, who requested that a left nephrostogram be completed to evaluate for any leaking. If there is no leaking, the nephrostogram may be removed. Dr. Cedillo has reportedly had difficulty reaching the patient for nephrostomy removal. Dr. Sears is the interventional radiologist who has seen the patient in the past. If the nephrostomy tube can be safely removed, the patient may be discharged with a prescription for ciprofloxacin. If there are complications with nephrostomy tube removal, Dr. Cedillo requests that Dr. Sears call him for discussion on next steps. The patient was signed out to Dr. Darling at 6 AM pending this study. I anticipate discharge. The patient will require follow-up with a primary care physician in 1-3 days. The patient understands the importance of following up with Dr. Cedillo as well. The patient will be given strict precautions with which to return to the emergency department. Prescriptions: Cipro (Anticipated) The patient's blood pressure was elevated at greater than 120/80 while in the emergency department. The patient was otherwise stable with no evidence of hypertensive urgency or emergency. The patient does not require admission for blood pressure control. I have discussed with the patient the risks of hypertension. I have instructed the patient to return to the ER for any new or worsening symptoms including chest pain, shortness of breath, headache, blurred vision, confusion, nausea, vomiting or LOC. I have advised the patient to follow up with the primary care physician for outpatient monitoring and treatment for hypertension in 1-3 days. Disclaimer: Inadvertent spelling and grammatical errors are likely due to EHR/dictation software use and do not reflect on the overall quality of patient care. Note that the electronic time recorded on this note does not necessarily reflect the actual time of the patient encounter. Departure Diagnosis: Primary Impression: UTI (urinary tract infection) Urinary tract infection type: acute cystitis Hematuria presence: with hematuria Qualified Codes: N30.01 - Acute cystitis with hematuria Additional Impressions: Normocytic anemia Dysuria Complication of nephrostomy H/O renal calculi Condition: Stable MILAD MEJIA MD Jan 08, 2019 04:25
[2019-01-08] MEDS ORDERED: CIPR500T4 PO (05:27)
[2019-01-08] MEDS ORDERED: IOHEXOL 300MG/ML 30 ML BTL ONE (08:37)
[2019-01-08 09:45] VITALS: BP 170/88; PULSE 62; RESP 18
--- NOTE | 2019-01-08 14:35 | CONS ---
DATE OF ADMISSION: 01/08/2019 DATE OF CONSULTATION: 01/08/2019 HISTORY OF PRESENT ILLNESS: Danyell is status post second stage left percutaneous nephrolithotripsy f or staghorn calculi in a horseshoe kidney. The patient presented yesterday to the emergency room for a followup nephrostogram. Initially, the patient stated that nothing was coming out of her nephrost mei tube and she has not been urinating at all, and then she stated that she had burning. In further discussion she states that nobody has called her or contacted her to obtain a nephrostogram prior to removal of her nephrostomy tube unless she presented to the emergency room for continuation of her c are. She denies any fever, sweats or chills, nausea or vomiting. PHYSICAL EXAMINATION: VITAL SIGNS: Blood pressure 175/80, heart rate 66, respirations 16, temperature 98.6. ABDOMEN: Soft, nondistended, nontender. No palpable masses. FLANK: Left nephrostomy tube draining clear yellow urine and is to gravity drainage. EXTREMITIES: No calf tenderness. LABORATORY DATA: White blood count 6.4, hemoglobin 11.9, creatinine 0.82. Subsequently, the patient underwent a nephrostogram under the care of Dr. Sears. A nephrostogram demonstrates that there is no further stone burden within the collecting system. The nephrostomy tube was in proper anatomical po sition. The ureteral stent is in proper anatomical position. With instillation and contrast, there was no noted extravasation or residual stone burden. The nephrostomy tube was removed intact and a s terile dressing was subsequently placed. IMPRESSION: Doing well status post second stage, percutaneous nephrolithotripsy for staghorn calculi in a horseshoe kidney, now status post removal of nephrostomy tube. PLAN: The patient may be discharged to home. Of note, prior to the procedure, she received ceftriax one. The patient has been instructed to follow up in the office next week for cystoscopy and stent r emoval. The importance of timely removal of her stent within the next 1 to 2 weeks has been stressed on multiple occasions as well as today. Dictated By: ROSETTE FRIAS MD EGR/NTS Conf#: [id number] DID#: [id number] CC: JUDY IZQUIERDO; ROSETTE FRIAS MD;*EndCC*
== END 2019-01-08 09:45 | disposition home or self-care (01) ==
LOC: FTE 00:14
DX: N30.01 Acute cystitis with hematuria (principal); D64.9 Anemia, unspecified; T83.092A Other mechanical complication of nephrostomy catheter, initial encounter; E11.9 Type 2 diabetes mellitus without complications; Y73.2 Prosthetic and other implants, materials and accessory gastroenterology and urology devices associated with adverse incidents; Z87.442 Personal history of urinary calculi
CPT/HCPCS: 36415; 36589; 74425; 76775; 80053; 81001; 81003; 83690; 85025; 96365; J0696; Q9967; Z7502

== ENCOUNTER 2019-01-24 12:27 | Emergency (ER) | payer OTHER ==
[~2019-01-24] VITALS: Ht 165.1 cm; Wt 76.0 kg
[~2019-01-24 12:27] MED LIST changes: +CIPR500T4 PO
[2019-01-24 12:35] VITALS: Ht 165.1 cm; Wt 76.0 kg
[2019-01-24] MEDS ORDERED: ONDANSETRON 4 MG INJ IV STA (18:11)
[2019-01-24] MEDS ORDERED: KETOROLAC 15 MG INJ IV STA (18:11)
--- NOTE | 2019-01-24 18:15 | ERD ---
ER Documentation Chief Complaint Chief Complaint pt is bib family with c/o abd pain and fever x 3 days HPI This is a 48-year-old female with a past medical history of diabetes, horseshoe kidney, recurrent nephrolithiasis, recurrent UTIs, previous , known ovarian cysts now presenting with 3 days of subjective fever, progressive moderate dull aching lower abdominal and suprapubic pain with associated bilateral lower back soreness. The patient endorses nausea with multiple episodes of nonbilious nonbloody vomiting. She has not had any constipation or diarrhea. She has not had any black or bloody or tarry stools. She denies any dysuria or hematuria or urgency at this time. She does report increased urinary frequency, however, and notes that this feels like her previous urinary tract infections. The patient has had no headache or vision changes. The patient does not endorse neck or back pain. The patient denies lightheadedness or dizziness. The patient has had no chest pain or trouble breathing. The patient has had no focal deficits. The patient has had no weakness or numbness or tingling to the face o r extremities. ROS All systems reviewed and are negative except as per history of present illness. Medications Home Meds Reported Medications Metformin Hcl* (Metformin Hcl*) 500 Mg Tablet, 500 MG PO WITH BREAKFAST DINNE, #60 TAB 12/25/18 Discontinued Reported Medications Hydrocodone/Acetaminophen ([place] 5-325 Tablet) 1 Each Tablet, 1 EACH PO Q6 PRN for PAIN, TAB 12/25/18 Ferrous Sulfate* (Ferrous Sulfate*) 325 Mg Tabec, 325 MG PO BID, TAB 12/25/18 Discontinued Scripts Ciprofloxacin Hcl* (Ciprofloxacin Hcl*) 500 Mg Tablet, 500 MG PO BID for 10 Days, TAB Prov:MILAD MEJIA MD 01/08/19 Allergies Allergies: Coded Allergies: No Known Allergies (Verified Allergy, Unknown, 01/24/19) PMhx/Soc History of Surgery: Yes (2 , OVARIAN CYSTS, NEPHROSTOMY) Anesthesia Reaction: Yes (SOB, "FEELING WARM" ) Hx Neurological Disorder: No Hx Respiratory Disorders: No Hx Cardiac Disorders: Yes (Diabetes) Hx Psychiatric Problems: No Hx Miscellaneous Medical Probl: Yes (Horseshoe kidney, previous staghorn calculi, nephrolithiasis) Hx Alcohol Use: No Hx Substance Use: No Hx Tobacco Use: No Smoking Status: Never smoker FmHx Family History: diabetes Physical Exam Vitals Vital Signs Date Temp Pulse Resp B/P (MAP) Pulse Ox O2 O2 Flow FiO2 Time Delivery Rate 01/24/19 98.9 86 20 138/90 100 Room Air 17:20 (106) 01/24/19 98.9 91 16 163/72 98 12:35 (102) Physical Exam Const: No apparent distress, well-developed, well-nourished Head: Normocephalic, Atraumatic Eyes: Normal Conjunctiva. Extraocular movements intact. Pupils equal, round and reactive to light ENT: Normal External Ears, Nose and Mouth. Neck: Full range of motion. No meningismus. Resp: Clear to auscultation bilaterally, No wheezes, rales or rhonchi Cardio: Regular rate and rhythm. No murmurs, rubs or gallops Abd: Soft, non distended. Suprapubic abdominal tenderness. Normal bowel sounds Skin: No petechiae or rashes Back: No midline tenderness. No CVA tenderness Ext: No cyanosis, or edema Neur: Awake and alert, oriented 4. Cranial nerves intact. No facial droop. Normal strength, sensation and coordination. Psych: Normal Mood and Affect Result Diagram: 01/24/19 1730 01/24/19 1730 Results 24 hrs Laboratory Tests Test 01/24/19 17:30 White Blood Count 8.4 10^3/ul Red Blood Count 4.78 10^6/ul Hemoglobin 13.0 g/dl Hematocrit 40.5 % Mean Corpuscular Volume 84.7 fl Mean Corpuscular Hemoglobin 27.2 pg Mean Corpuscular Hemoglobin Concent 32.1 g/dl Red Cell Distribution Width 15.3 % Platelet Count 144 10^3/UL Mean Platelet Volume 11.9 fl Immature Granulocytes % 0.500 % Neutrophils % 71.9 % Lymphocytes % 15.3 % Monocytes % 11.1 % Eosinophils % 0.8 % Basophils % 0.4 % Nucleated Red Blood Cells % 0.0 /100WBC Immature Granulocytes # 0.040 10^3/ul Neutrophils # 6.0 10^3/ul Lymphocytes # 1.3 10^3/ul Monocytes # 0.9 10^3/ul Eosinophils # 0.1 10^3/ul Basophils # 0.0 10^3/ul Nucleated Red Blood Cells # 0.0 10^3/ul Urine Color YELLOW Urine Clarity CLOUDY Urine pH 6.0 Urine Specific [place] 1.019 Urine Ketones NEGATIVE mg/dL Urine Nitrite POSITIVE mg/dL Urine Bilirubin NEGATIVE mg/dL Urine Urobilinogen NEGATIVE mg/dL Urine Leukocyte Esterase 3+ Dulce/ul Urine Microscopic RBC 21 /HPF Urine Microscopic WBC > 182 /HPF Urine Squamous Epithelial Cells MODERATE /HPF Urine Bacteria MODERATE /HPF Urine Mucus MODERATE /HPF Urine Hemoglobin 2+ mg/dL Urine Glucose 1+ mg/dL Urine Total Protein 2+ mg/dl Sodium Level 140 mmol/L Potassium Level 3.5 mmol/L Chloride Level 102 mmol/L Carbon Dioxide Level 28 mmol/L Anion Gap 10 Blood Urea Nitrogen 11 mg/dl Creatinine 0.74 mg/dl Est Glomerular Filtrat Rate mL/min > 60 mL/min Glucose Level 225 mg/dl Calcium Level 10.8 mg/dl Total Bilirubin 0.6 mg/dl Direct Bilirubin 0.00 mg/dl Indirect Bilirubin 0.6 mg/dl Aspartate Amino Transf (AST/SGOT) 18 IU/L Alanine Aminotransferase (ALT/SGPT) 13 IU/L Alkaline Phosphatase 112 IU/L Total Protein 8.5 g/dl Albumin 4.5 g/dl Globulin 4.00 g/dl Albumin/Globulin Ratio 1.12 Lipase 75 U/L Current Medications Medications Dose Sig/Earnest Start Time Status Last (Trade) Ordered Route PRN Stop Time Admin Dose Reason Admin Ceftriaxone 50 ml @ ONCE ONCE 01/24/19 DC 01/24/19 Sodium 100 mls/hr IVPB 18:30 18:29 01/24/19 18:59 Sodium 1,000 ml @ Q1H ONCE 01/24/19 01/24/19 Chloride 1,000 mls/hr IV 18:30 18:29 01/24/19 19:29 Ondansetron 4 mg ONCE STAT 01/24/19 DC 01/24/19 HCl (Zofran IV 18:11 18:29 Inj) 01/24/19 18:16 Ketorolac 15 mg ONCE STAT 01/24/19 DC 01/24/19 Tromethamine IV 18:11 18:29 (Toradol) 01/24/19 18:16 Procedures/MDM MDM The patient's presentation warrants further investigation. Previous medical records, if available, were reviewed. LABS The patient's laboratory testing was obtained and reviewed. No emergent treatment was required unless described below. CBC: No E/o systemic infection or severe anemia or thrombocytopenia Chemistry: No E/o severe acidosis or alkalosis or renal failure or liver disease. Hyperglycemia without diabetic ketoacidosis Lipase: No E/o pancreatitis Urine: E/o acute infection or hematuria TREATMENT/DISPOSITION The patient presents with suprapubic abdominal pain. The patient's urinalysis is demonstrative of a urinary tract infection with hematuria. The patient was given a dose of Rocephin in the emergency department. A urine culture was sent off. The patient does not have flank tenderness. The patient has had kidney stones in the past, and this is a possibility. However, she does not have flank tenderness at this time. The patient does have some blood in her urine, but it is significantly less than previous studies. I do anticipate a urinary tract infection over nephrolithiasis. The patient does not have symptoms consistent w ith renal colic. I do not feel that CT imaging is necessary at this time. The patient's renal function is normal. I do not suspect pyelonephritis. The patient does not have any evidence of peritonitis. The patient does not have clinical symptoms concerning for mesenteric ischemia or ischemic colitis. The patient does not have right upper quadrant tenderness, and I have low suspicion for gallstones, cholecystitis or biliary colic. The patient does not have any epigastric pain. I have low suspicion for gastritis, PUD or GERD. The patient does not have left upper quadrant tenderness. I have low suspicion for pancreatitis. I have low suspicion for appendicitis. The patient does not have any left lower quadrant tenderness, and I have low suspicion for diverticulosis or diverticulitis. The patient does not have any palpable pulsatile mass or severe abdominal pain radiating to the back. I have low suspicion for aortic aneurysm, dissection or rupture. DISCHARGE Upon reevaluation of the patient, symptoms have improved. No emergent diagnoses were identified. At this time, I feel that the patient stable for discharge. The patient was instructed to follow-up with a primary care physician in 1-3 days. The patient will also call and follow-up with her urologist, Dr. Cedillo, next week. The patient will be given strict precautions with which to return to the emergency department. Prescriptions: Keflex, Zofran The patient's blood pressure was elevated at greater than 120/80 while in the emergency department. The patient was otherwise stable with no evidence of hypertensive urgency or emergency. The patient does not require admission for blood pressure control. I have discussed with the patient the risks of hypertension. I have instructed the patient to return to the ER for any new or worsening symptoms including chest pain, shortness of breath, headache, blurred vision, confusion, nausea, vomiting or LOC. I have advised the patient to follow up with the primary care physician for outpatient monitoring and treatment for hypertension in 1-3 days. Disclaimer: Inadvertent spelling and grammatical errors are likely due to EHR/dictation software use and do not reflect on the overall quality of patient care. Note that the electronic time recorded on this note does not necessarily reflect the actual time of the patient encounter. Departure Diagnosis: Primary Impression: UTI (urinary tract infection) Urinary tract infection type: acute cystitis Hematuria presence: with hematuria Qualified Codes: N30.01 - Acute cystitis with hematuria Additional Impressions: Suprapubic pain Nausea & vomiting Vomiting type: unspecified Vomiting Intractability: non-intractable Qualified Codes: R11.2 - Nausea with vomiting, unspecified Hyperglycemia Condition: Stable Patient Instructions: Understanding Urinary Tract Infections (UTIs), Hyperglycemia (High Blood Sugar), Nausea and Vomiting-Adult Additional Instructions: Thank you for for coming to [facility] for your care today. Please ask your nurse or provider if you have questions about your care today and do not leave until all your questions have been answered. Please use any medications given as directed and follow-up with your doctor (or the doctor you were referred to) in the next 1-3 days. If you do not have a primary care doctor you may follow up at the [facility] or [facility] (listed below). You may also use motrin and tylenol as needed for fever and/or pain unless instructed otherwise by your provider or nurse. Indications for more urgent follow-up have been discussed, but you may return to the Emergency Department at ANY time for any worrisome or worsening symptoms. If you have abdominal pain, please know that no test or exam you received is perfect and you should follow up within 8 hours for continued pain. If you had any imaging studies today, such as an X-Ray or CT Scan, these studies will be reviewed later by a radiologist. You will be called if there are important findings that were not identified today, so make sure the contact information you provided at registration is correct. If you received any narcotic pain control medicine today, such as Vicodin, Morphine or Dilaudid, your coordination and judgment may be affected for a number of hours. Please do not drive or operate heavy machinery, and you may want someone to assist you at home. If you were given a prescription for narcotic medication, be aware that it is very addictive- use sparingly and only if necessary. PLEASE SEEK FURTHER EVALUATION AND MANAGEMENT AT YOUR DOCTORS OFFICE WITHIN THE NEXT 1-3 DAYS. IT IS YOUR RESPONSIBILITY TO MAKE AN APPOINTMENT FOR FOLOW-UP CARE. IF YOU HAVE A PRIMARY DOCTOR, PLEASE CALL THEIR OFFICE TO SCHEDULE AN APPOINTMENT FOR FOLLOW UP. IF YOU DO NOT HAVE A PRIMARY DOCTOR YOU CAN CALL OUR PHYSICIAN REFERRAL HOTLINE AT IF YOU CAN NOT AFFORD TO SEE A PHYSICIAN YOU CAN CHOSE FROM THE FOLLOWING [facility] CLINICS: [facility] [address] [facility] [address] [address] [address] [facility] [facility] [address] [facility] [address] [facility] [facility] [address] [facility]. [facility]. [address] MILAD KATZ MD Jan 24, 2019 18:15
[2019-01-24] MEDS ORDERED: SOD CHLORIDE 0.9% 1,000 ML IV ONE (18:30)
[2019-01-24] MEDS ORDERED: CEFTRIAXONE 1 GM/50 ML (PMX) 50 ML IVPB ONE (18:30)
[2019-01-24] MEDS ORDERED: ONDA4TAB8 PO (19:33)
[2019-01-24] MEDS ORDERED: CEPH-443 PO (19:33)
[2019-01-24 19:49] VITALS: BP 118/81; PULSE 77; RESP 20
== END 2019-01-24 20:05 | disposition home or self-care (01) ==
LOC: E/R 12:27
DX: N30.01 Acute cystitis with hematuria (principal); E11.65 Type 2 diabetes mellitus with hyperglycemia; Z79.84 Long term (current) use of oral hypoglycemic drugs
CPT/HCPCS: 36415; 80053; 81001; 83690; 85025; 87086; 96374; 96375; J0696; J1885; J2405; J7030; Z7502

== ENCOUNTER 2019-04-01 15:30 | Emergency (ER) | payer OTHER ==
[~2019-04-01] VITALS: Ht 165.1 cm; Wt 79.8 kg
[~2019-04-01 15:30] MED LIST changes: +CEPH-443 PO; -CIPR500T4 PO; -FER325 PO; -HYDR-4011 PO; +ONDA4TAB8 PO
[2019-04-01 16:03] VITALS: Ht 165.1 cm; Wt 79.8 kg
[2019-04-01] MEDS ORDERED: ONDANSETRON 4 MG INJ IV STA (17:04)
[2019-04-01] MEDS ORDERED: SOD CHLORIDE 0.9% 1,000 ML IV STA (17:04)
[2019-04-01] MEDS ORDERED: KETOROLAC 15 MG INJ IV STA (17:04)
[2019-04-01] MEDS ORDERED: ACETAMINOPHEN 325 MG TAB PO ONE (17:30)
[2019-04-01] MEDS ORDERED: CEFTRIAXONE 1 GM/50 ML (PMX) 50 ML IVPB ONE (18:00)
[2019-04-01] MEDS ORDERED: ONDA4TAB14 PO (18:04)
[2019-04-01] MEDS ORDERED: SULF1TAB31 PO (18:04)
--- NOTE | 2019-04-01 18:29 | ERD ---
ER Documentation Chief Complaint Chief Complaint pelvic pain & back pain, painful urination since yesterday HPI This is a 48-year-old female with history of diabetes, horseshoe kidney, recurrent nephrolithiasis as well as recurrent UTIs presents to the ED complaining of 2 days of foul-smelling urine, dysuria, frequency and urgency. Patient is also complaining of lower pelvic pain and back pain. She states she developed a fever of 102 F today. She did not take any medications for this. She also reports some associated nausea as well. No vomiting. No diarrhea. No recent hospitalization. Patient was last treated for pyelonephritis/UTI approximately 2 months ago as outpatient. She states today's symptoms are similar. ROS All systems reviewed and are negative except as per history of present illness. Medications Home Meds Active Scripts Ondansetron (Ondansetron Odt) 4 Mg Tab.rapdis, 4 MG PO Q6H PRN for NAUSEA AND/OR VOMITING, #10 TAB Prov:DISHIGRIKIAN,ZEPYUR N PA-C 04/01/19 Sulfamethoxazole/Trimethoprim* (Bactrim Ds* Tablet) 1 Each Tablet, 1 TAB PO BID, #20 TAB Prov:DISHIGRIKIAN,ZEPYUR N PA-C 04/01/19 Ondansetron Hcl* (Zofran*) 4 Mg Tablet, 4 MG PO Q6H PRN for NAUSEA AND OR VOMITING, #20 TAB Prov:MILAD MEJIA MD 01/24/19 Cephalexin* (Keflex*) 500 Mg Capsule, 500 MG PO BID for 10 Days, CAP Prov:MILAD MEJIA MD 01/24/19 Reported Medications Metformin Hcl* (Metformin Hcl*) 500 Mg Tablet, 500 MG PO WITH BREAKFAST DINNE, #60 TAB 12/25/18 Allergies Allergies: Coded Allergies: No Known Allergies (Verified Allergy, Unknown, 01/24/19) PMhx/Soc History of Surgery: Yes (2 , OVARIAN CYSTS, NEPHROSTOMY) Anesthesia Reaction: Yes (SOB, "FEELING WARM" ) Hx Neurological Disorder: No Hx Respiratory Disorders: No Hx Cardiac Disorders: Yes (Diabetes) Hx Psychiatric Problems: No Hx Miscellaneous Medical Probl: Yes (Horseshoe kidney, previous staghorn calculi, nephrolithiasis) Hx Alcohol Use: No Hx Substance Use: No Hx Tobacco Use: No Smoking Status: Never smoker Physical Exam Vitals Vital Signs Date Temp Pulse Resp B/P (MAP) Pulse Ox O2 O2 Flow FiO2 Time Delivery Rate 04/01/19 102.6 72 18 154/76 98 16:03 (102) Physical Exam Const: No acute distress Head: Atraumatic Eyes: Normal Conjunctiva ENT: Normal External Ears, Nose and Mouth. Neck: Full range of motion. No meningismus. Resp: Clear to auscultation bilaterally Cardio: Regular rate and rhythm, no murmurs Abd: Soft, + mild mid suprapubic tenderness to palpation. No rebound, no guarding. Negative McBurney's. Negative Camejo's. Non distended. Normal bowel sounds Skin: No petechiae or rashes Back: No midline tenderness. + Bilateral CVA tenderness. Ext: No cyanosis, or edema Neur: Awake and alert Psych: Normal Mood and Affect Result Diagram: 04/01/19 1712 04/01/19 1712 Results 24 hrs Laboratory Tests Test 04/01/19 17:12 04/01/19 17:23 White Blood Count 9.6 10^3/ul Red Blood Count 4.73 10^6/ul Hemoglobin 13.1 g/dl Hematocrit 40.3 % Mean Corpuscular Volume 85.2 fl Mean Corpuscular Hemoglobin 27.7 pg Mean Corpuscular Hemoglobin Concent 32.5 g/dl Red Cell Distribution Width 15.3 % Platelet Count 163 10^3/UL Mean Platelet Volume 12.8 fl Immature Granulocytes % 0.300 % Neutrophils % 79.8 % Lymphocytes % 8.4 % Monocytes % 11.1 % Eosinophils % 0.2 % Basophils % 0.2 % Nucleated Red Blood Cells % 0.0 /100WBC Immature Granulocytes # 0.030 10^3/ul Neutrophils # 7.7 10^3/ul Lymphocytes # 0.8 10^3/ul Monocytes # 1.1 10^3/ul Eosinophils # 0.0 10^3/ul Basophils # 0.0 10^3/ul Nucleated Red Blood Cells # 0.0 10^3/ul Sodium Level 141 mmol/L Potassium Level 4.1 mmol/L Chloride Level 103 mmol/L Carbon Dioxide Level 27 mmol/L Anion Gap 11 Blood Urea Nitrogen 14 mg/dl Creatinine 0.67 mg/dl Est Glomerular Filtrat Rate mL/min > 60 mL/min Glucose Level 157 mg/dl Calcium Level 10.3 mg/dl Total Bilirubin 0.8 mg/dl Direct Bilirubin 0.00 mg/dl Indirect Bilirubin 0.8 mg/dl Aspartate Amino Transf (AST/SGOT) 18 IU/L Alanine Aminotransferase (ALT/SGPT) 29 IU/L Alkaline Phosphatase 117 IU/L Total Protein 7.6 g/dl Albumin 4.3 g/dl Globulin 3.30 g/dl Albumin/Globulin Ratio 1.30 Lipase 91 U/L Serum HCG, Qualitative NEGATIVE Urine Color YELLOW Urine Clarity TURBID Urine pH 7.0 Urine Specific [place] 1.020 Urine Ketones NEGATIVE mg/dL Urine Nitrite NEGATIVE mg/dL Urine Bilirubin NEGATIVE mg/dL Urine Urobilinogen NEGATIVE mg/dL Urine Leukocyte Esterase 1+ Dulce/ul Urine Microscopic RBC 32 /HPF Urine Microscopic WBC 65 /HPF Urine Squamous Epithelial Cells MODERATE /HPF Urine Amorphous Crystals MODERATE /HPF Urine Bacteria FEW /HPF Urine Mucus MODERATE /HPF Urine Hemoglobin 1+ mg/dL Urine Glucose NEGATIVE mg/dL Urine Total Protein 1+ mg/dl Current Medications Medications Dose Sig/Earnest Start Time Status Last (Trade) Ordered Route PRN Stop Time Admin Dose Reason Admin Sodium 1,000 ml @ Q1H STAT 04/01/19 DC 04/01/19 Chloride 1,000 mls/hr IV 17:04 17:21 04/01/19 18:03 Ondansetron 4 mg ONCE STAT 04/01/19 DC 04/01/19 HCl (Zofran IV 17:04 17:22 Inj) 04/01/19 17:06 Ketorolac 15 mg ONCE STAT 04/01/19 DC 04/01/19 Tromethamine IV 17:04 18:12 (Toradol) 04/01/19 17:06 650 mg ONCE ONCE 04/01/19 DC 04/01/19 Acetaminophen PO 17:30 17:22 (Tylenol 04/01/19 17:31 Tab) Ceftriaxone 50 ml @ ONCE ONCE 04/01/19 04/01/19 Sodium 100 mls/hr IVPB 18:00 17:59 04/01/19 18:29 Procedures/MDM LABS & DIAGNOSTIC IMAGING: CBC: no e/o of systemic infection or severe anemia CMP: no e/o severe acidosis, alkalosis, renal failure, diabetic ketoacidosis, liver disease Lipase: No evidence of pancreatitis Hcg: negative Urine: + Positive leuk esterase, pyuria, hematuria ED COURSE: The patient was given IV fluids, Toradol, Zofran, ceftriaxone, p.o. Tylenol The medication was well tolerated and the patient had market improvement in symptoms. The patient remained stable throughout ED course. MEDICAL DECISION MAKING: This is a 48-year-old female with diabetes, recurrent nephrolithiasis and UTIs who presents with urinary complaints and back pain. UA with evidence of infection. She is febrile here and has CVA tenderness on physical exam. Patient's overall clinical picture is consistent with pyelonephritis. She was given 1 g of IV ceftriaxone here and discharged home with outpatient antibiotics. Urine culture is pending. History and physical not concerning for severe dehydration, sepsis, or any emergent abdominal pathology. Pt is to follow up with PCP in the next few days, take antibiotics as prescribed and return to the ED immediately for increase in symptoms, change in symptoms or any other concern. PRESCRIPTIONS: Zofran, Bactrim SPECIALIST FOLLOW UP RECOMMENDED: None Patient has been advised to follow up with primary care in 1-2 days. Blood Pressure Assessment: Patient's blood pressure was elevated (>120/80) but appears stable without evidence of hypertension emergency or urgency. The patient was counseled about the risks of hypertension and urged to pursue outpatient monitoring and therapy within a week with their primary care physician. Departure Diagnosis: Primary Impression: Pyelonephritis Condition: Stable Patient Instructions: Pyelonephritis, Female (Adult) Referrals: [facility] YOU HAVE RECEIVED A MEDICAL SCREENING EXAM AND THE RESULTS INDICATE THAT YOU DO NOT HAVE A CONDITION THAT REQUIRES URGENT TREATMENT IN THE EMERGENCY DEPARTMENT. FURTHER EVALUATION AND TREATMENT OF YOUR CONDITION CAN WAIT UNTIL YOU ARE SEEN IN YOUR DOCTORS OFFICE WITHIN THE NEXT 1-2 DAYS. IT IS YOUR RESPONSIBILITY TO MAKE AN APPOINTMENT FOR FOLOW-UP CARE. IF YOU HAVE A PRIMARY DOCTOR --you should call your primary doctor and schedule an appointment IF YOU DO NOT HAVE A PRIMARY DOCTOR YOU CAN CALL OUR PHYSICIAN REFERRAL HOTLINE AT IF YOU CAN NOT AFFORD TO SEE A PHYSICIAN YOU CAN CHOSE FROM THE FOLLOWING [facility] [address] [facility] [address] [facility] [facility] [address] [facility] [address] [facility] [address] [facility]. [facility] [address] [facility]. [facility] YOU HAVE RECEIVED A MEDICAL SCREENING EXAM AND THE RESULTS INDICATE THAT YOU DO NOT HAVE A CONDITION THAT REQUIRES URGENT TREATMENT IN THE EMERGENCY DEPARTMENT. FURTHER EVALUATION AND TREATMENT OF YOUR CONDITION CAN WAIT UNTIL YOU ARE SEEN IN YOUR DOCTORS OFFICE WITHIN THE NEXT 1-2 DAYS. IT IS YOUR RESPONSIBILITY TO MAKE AN APPOINTMENT FOR FOLOW-UP CARE. IF YOU HAVE A PRIMARY DOCTOR --you should call your primary doctor and schedule and appointment IF YOU DO NOT HAVE A PRIMARY DOCTOR YOU CAN CALL OUR PHYSICIAN REFERRAL HOTLINE AT . IF YOU CAN NOT AFFORD TO SEE A PHYSICIAN YOU CAN CHOSE FROM THE FOLLOWING [facility] INSTITUTIONS: [facility] [address] [place] [address] [facility] [address] [place] [address] [facility] + [facility] [address] [place] [address] Additional Instructions: Call your primary care doctor TOMORROW for an appointment during the next 2-4 days and bring all the information and medications prescribed. If the symptoms get worse and your provider is unavailable, return to the Emergency Department immediately. JULIEN COLLIER PA-C Apr 01, 2019 18:29
[2019-04-01 18:33] VITALS: BP 118/67; PULSE 87; RESP 16
== END 2019-04-01 18:34 | disposition home or self-care (01) ==
LOC: FTE 15:30
DX: N12 Tubulo-interstitial nephritis, not specified as acute or chronic (principal)
CPT/HCPCS: 36415; 80053; 81001; 83690; 84703; 85025; 87086; 96374; 96375; J0696; J1885; J2405; J7030; Z7502; Z7610; 81025